=== PATIENT | female | born 1985 | race Caucasian/White ===

== ENCOUNTER 2018-06-09 12:44 | Emergency (ER) | payer MEDICAID, SELFPAY ==
[2018-06-09 12:52] VITALS: BP 130/77; PULSE 89; RESP 18; TEMP 36.8
--- NOTE | 2018-06-09 13:54 | DI.RAD_ITS ---
SYMPTOM/DIAGNOSIS: COUGH, PROD GREEN SPUTUM PA AND LATERAL CHEST: 06/09 The heart is normal in size. The lungs are clear. The mediastinal structures and pleura appear intact. CONCLUSION: Normal chest.
[2018-06-09] MEDS: Normal Saline 1,000 ML 1000 ML IV (14:21)
[2018-06-09 14:25] LABS: Abs Immature Grans 0.01 k/cumm (0.0-0.09); Absolute Basophil Count 0.01 k/cumm (0.0-0.2); Absolute Eosinophil Count 0.11 k/cumm (0.0-0.7); Absolute Lymphocyte Count 1.14 k/cumm (1.2-3.4); Absolute Monocyte Count 0.63 k/cumm (0.11-0.7); Absolute Neutrophil Count 4.12 k/cumm (1.2-6.7); Basophils % 0.2; Eosinophils % 1.8; HCT 47.1 % (36.0-46.0); Immature Grans % 0.2; Lymphocytes % 18.9; Mean Corpuscular Hemoglobin 29.7 pg (27.0-33.0); Mean Corpuscular Volume 87.4 fL (80-95); Mean Platelet Volume 8.7 fL (8.0-11.0); Monocytes % 10.5; Neutrophils % 68.4; Platelet Count 306 x1000/uL (130-400); RBC 5.39 m/cumm (4.00-5.20); RBC Distribution Width 12.5 % (11.7-14.6); White Blood Cell Count 6.02 k/cumm (4.4-10.8)
[2018-06-09] MEDS: Acetaminophen 500 MG TAB 1000 MG PO (14:28)
[2018-06-09] MEDS: Ketorolac 30 MG/ML VIAL IM (14:28)
[2018-06-09 14:30] LABS: Bilirubin Moderate (Negative); Blood Negative (Negative); Clarity Cloudy; Glucose Negative (Negative); Ketones >=160 mg/dL (Negative); Leukocyte Esterase Negative (Negative); Nitrite Negative (Negative); Specific Gravity >= 1.030 (1.005-1.025); Urobilinogen 0.2 EU/dL (Up TO 0.2)
[2018-06-09 14:37] LABS: RBC 0-2 (0-2); WBC 0-2 HPF (0-5)
[2018-06-09 14:37] LABS: ALT 16 U/L (12-78); AST 15 U/L (15-37); Albumin 3.8 g/dL (3.4-5.0); Alkaline Phosphatase 111 U/L (46-116); Anion Gap 13.6 mmol/L (3-11); BUN 14 mg/dL (7-18); Bilirubin, Total 0.5 mg/dL (0.2-1.0); CO2 23.4 mmol/L (21.0-32.0); CREATININE 0.86 mg/dL (0.55-1.02); Calcium 8.8 mg/dL (8.5-10.1); Chloride 97 mmol/L (98-107); Glucose 112 mg/dL (70-100); Lipase 231 U/L (73-393); Sodium 134 mmol/L (136-145); Total Protein 8.9 g/dL (6.4-8.2)
[2018-06-09 14:38] LABS: Bacteria Few HPF (Negative); C & S Indicated? No/Sq. Contamination; Casts Negative LPF (Negative); Crystals Negative HPF (Negative); Epithelial Cells Many HPF (Negative); Mucus Negative (Negative); Other Cells Rare Renal (Negative)
[2018-06-09 14:43] LABS: Potassium 2.8 mmol/L (3.5-5.1)
[2018-06-09] MEDS: POTASSIUM CHLORIDE 10 MEQ/100 ML BAG 100 MEQ IVPB (15:47)
[2018-06-09] MEDS: Potassium Chloride 20 MEQ TABCR 40 MEQ PO (15:47)
[2018-06-09 16:34] VITALS: BP 122/80; PULSE 90; RESP 18; TEMP 36.9; O2SAT 96
[2018-06-09 17:36] VITALS: BP 128/80; PULSE 89; RESP 16; TEMP 36.8; O2SAT 99
--- NOTE | 2018-06-09 21:22 | W.ED.GENAD ---
Discharge Plan Disposition Patient Disposition: HOME Condition: Good Discharge Details Chief Complaint: Dizzy/Sync Clinical Impression: Acute hypokalemia, Acute dehydration, URI (upper respiratory infection) Reason For Visit: PAOEX Primary Care Provider: Nila Singleton ED Provider: Rupesh Heranndes Home Meds and New Rx's Prescriptions: New potassium chloride 20 mEq tablet extended release 20 meq PO DAILY Qty: 7 RF: 0 No Action metronidazole 45 GM gel 45 gm Topical BID Qty: 1 RF: 5 omeprazole 40 MG capsule,delayed release(DR/EC) 40 mg PO DAILY Qty: 90 RF: 4 bupropion HCl 300 MG tablet extended release 24 hr 300 mg PO DAILY Qty: 90 RF: 3 norgestimate-ethinyl estradiol [Sprintec (28)] 1 EACH tablet 1 tab-cap PO DAILY Qty: 3 RF: 4 prazosin 1 MG capsule 1 mg PO HS Qty: 90 RF: 4 omega-3 fatty acids-fish oil 1 EACH capsule 1 ea PO BID Qty: 60 RF: 11 lorazepam 0.5 MG tablet 0.5 mg PO TID Qty: 90 RF: 1 cholecalciferol (vitamin D3) 4,000 unit capsule 4,000 unit PO DAILY Qty: 90 RF: 3 venlafaxine 75 mg capsule,extended release 24hr 75 mg PO DAILY Qty: 90 RF: 3 Discharge Instructions Instructions: Hypokalemia (ED), Upper Respiratory Infection (ED) Additional Instructions: Please take medication as directed. If you notice any worsening of your symptoms, or any new symptoms such as vomiting, diarrhea, fever, chills, shortness of breath, chest pain, numbness, weakness, or fainting , please return immediately to the emergency department for reevaluation. Please follow up with your primary care provider as soon as possible for reassessment and reevaluation. As always, it was a pleasure participating in your medical care today. Referrals: Nila Singleton MD [Primary Care Provider] - Medical Decision Making This is a pleasant 32-year-old female who presents with a myriad of various complaints, most of which stem from 5 days of an upper respiratory-like illness, with some associated occasional nausea, occasional vomiting, most often posttussive emesis, and occasional loose stools. The patient's symptoms have actually seemed to have improved in the last 24 hours but she still feels slightly poor. Fluids were started on the patient by EMS, and she states that the fluids that she received in route significantly improved her symptoms. The remainder of the patient's physical exam is very benign. Laboratory workup shows no evidence of leukocytosis, no significant anemia, no bandemia. Electrolytes demonstrate a low sodium of 2.8, which per records she has had in the past, however this 1 appears to be slightly acute at this time. Renal function is normal. Bilirubin, AST and ALT and alk phos are normal. Lipase is normal. Urinalysis shows signs of mild dehydration, but no evidence of infection or hematuria. After rehydration the patient was feeling much better. I feel that her symptoms are most likely secondary to mild dehydration secondary to her recent URI. She has been given IV and oral potassium here and new prescription for home potassium. We discussed red flags for which to return. I have extensively reviewed the treatment plan and discharge instructions with the patient. I have addressed all patient concerns at this time. The patient was made aware of what symptoms to monitor for that would warrant a return to the emergency department. Discussed the plan with the patient, they demonstrate verbal understanding and agreement with our assessment and plan at this time. HPI General Date/Time Provider Initiated Documentation: 06/09/18 13:29. [facility] Narrative: This is a 32-year-old female who presents today for evaluation of multiple nonspecific complaints. The patient states that over the last 5 days she has had upper respiratory infection-like symptoms, with cough, congestion, and runny nose. She has had occasional chills but denies any fever. Her cough has been productive with green sputum. She does admit to some mild fatigue, but to me she denies any dizziness, headache, syncope, numbness, tingling, chest pain, shortness of breath. She does admit to 2-3 episodes of vomiting 3 days ago, however this is resolved. She has does admit to some occasional loose stool but denies any recent antibiotic use, foreign travel, or other sick contacts. Patient did call EMS because of her symptoms, and an IV was started as well as IV fluids, patient states that as soon as she started getting the IV fluids she started feeling much better.Patient denies any other complaints at this time. She denies any recent surgical history, pertinent family history, IV or illicit drug use Related Data Home Medications Medication Instructions Recorded Confirmed metronidazole 45 gm TOPICAL BID #1 tube 11/16/16 omeprazole 40 mg PO DAILY #90 tab-cap 06/25/17 bupropion HCl 300 mg PO DAILY #90 tab-cap 07/25/17 norgestimate-ethinyl estradiol 1 tab-cap PO DAILY #3 pack 10/17/17 [Sprintec] prazosin 1 mg PO HS #90 cap 12/11/17 omega-3 fatty acids-fish oil 1 ea PO BID #60 cap 01/07/18 lorazepam 0.5 mg PO TID #90 tab-cap 04/24/18 cholecalciferol (vitamin D3) 4,000 4,000 unit PO DAILY #90 cap 05/20/18 unit capsule venlafaxine ER 75 mg 75 mg PO DAILY #90 cap 05/21/18 capsule,extended release 24 hr potassium chloride 20 meq PO DAILY #7 tab 06/09/18 Previous Rx's Medication Instructions Recorded omeprazole 40 mg PO DAILY #90 tab-cap 06/25/17 bupropion HCl 300 mg PO DAILY #90 tab-cap 07/25/17 norgestimate-ethinyl estradiol 1 tab-cap PO DAILY #3 pack 10/17/17 [Sprintec] prazosin 1 mg PO HS #90 cap 12/11/17 omega-3 fatty acids-fish oil 1 ea PO BID #60 cap 01/07/18 lorazepam 0.5 mg PO TID #90 tab-cap 04/24/18 cholecalciferol (vitamin D3) 4,000 4,000 unit PO DAILY #90 cap 05/20/18 unit capsule venlafaxine ER 75 mg 75 mg PO DAILY #90 cap 05/21/18 capsule,extended release 24 hr potassium chloride 20 meq PO DAILY #7 tab 06/09/18 Allergies Allergy/AdvReac Type Severity Reaction Status Date / Time Iodinated Contrast- Oral and Allergy Intermediate Rash,nausea Unverified 07/09/17 15:36 IV Dye General Stated Complaint: Dizzy/Sync JOSE MANUEL: 3 Review of Systems Review of Systems All systems reviewed & are unremarkable except as noted in HPI and below PFSH Family History Mother No problems noted. Father No problems noted. Grandfather Diabetes Dementia Sister No problems noted. Sister No problems noted. Sister No problems noted. Sister No problems noted. Brother No problems noted. Brother No problems noted. Grandfather Depression Myocardial infarction Cerebrovascular accident Grandmother No problems noted. Grandmother No problems noted. Daughter No problems noted. Paternal History Osteoporosis Medical History Contraception Depression GERD History of migraine Molar Renal mass, right Social History Smoking/Tobacco Use Status: Former Tobacco Use Surgical History Dilation and curettage Exam Narrative Exam Narrative: 1.Const: Well-nourished, Well-developed, appearing stated age 2.Eyes: PERRL, no conjunctival injection, and symmetrical lids. 3.ENT: Atraumatic external nose and ears. Dry MM. Neck: Symmetric, trachea midline, No thyromegaly. 4.CVS: +S1/S2, No murmurs or gallops. Peripheral pulses 2+ and equal in all extremities. Brisk capillary refill in all extremities. 5.RESP: Unlabored respiratory effort. Clear to auscultation bilaterally. No wheezes rales or rhonchi. Occasional upper respiratory rhonchi which are resolved with cough. 6.GI: Soft, Nontender/Nondistended, No hepatosplenomegaly. No guarding or rebound. No pain at McBurney's point. Negative Gipson sign. Bedside portable ultrasound was performed and demonstrated a gallbladder wall of 2.9 mm. No gallstones are present. Negative sonographic Gipson sign 7.MSK: Normocephalic/Atraumatic, Extremities w/o deformity or ttp No cyanosis or clubbing, Normal movement of all extremities 8.Skin: Warm, Dry. No rashes or lesions. 9.Neuro: nurse instructor II-XII grossly intact. Sensation grossly intact, no focal neurologic deficits. All 6 cardinal planes of vision or fully intact. No evidence of horizontal or vertical nystagmus. The patient demonstrated a normal vyfwkc-fduu-giqwmf, good dexterity. There was no evidence of dysdiadochokinesia. Patient was able to ambulate without difficulty. There was no wide-based gait. Romberg, and osfl-uc-xaal are both normal on testing. Sensation was intact bilaterally as well as muscle strength bilaterally for all extremities. Patient was able to verbalize butter cup with no slurring, or miss pronunciation. 10.Psych: (AAO) x3. Appropriate mood and affect Course Vital Signs Temperature 36.8 C 06/09/18 12:52 Pulse 89 06/09/18 12:52 Respiratory Rate 18 06/09/18 12:52 Blood Pressure 130/77 06/09/18 12:52 Temperature 36.8 C 06/09/18 17:36 Temperature Source Temporal Artery Scan 06/09/18 16:34 Pulse 89 06/09/18 17:36 Respiratory Rate 16 06/09/18 17:36 Respiratory Effort Non-Labored 06/09/18 12:54 Blood Pressure 128/80 06/09/18 17:36 Blood Pressure Position Sitting 06/09/18 12:52 Pulse Oximetry 99 06/09/18 17:36 Oxygen Delivery Method Room Air 06/09/18 16:34 Oxygen Flow Rate 0 06/09/18 16:34 Pain Level 4 06/09/18 12:52 Lab/Test Results Lab/Test Results: Laboratory Tests Range/Units 06/09/18 06/09/18 06/09/18 14:16 14:16 14:20 WBC (4.4-10.8) k/cumm 6.02 RBC (4.00-5.20) m/cumm 5.39 H Hgb (12.0-15.5) g/dL 16.0 H Hct (36.0-46.0) % 47.1 H MCV (80-95) fL 87.4 MCH (27.0-33.0) pg 29.7 MCHC (32.0-36.0) g/dL 34.0 RDW (11.7-14.6) % 12.5 Plt Count (130-400) x1000/uL 306 MPV (8.0-11.0) fL 8.7 Immature Gran % 0.2 Neutrophils % 68.4 Lymphocytes % 18.9 Monocytes % 10.5 Eosinophils % 1.8 Basophils % 0.2 Absolute Neutrophils (1.2-6.7) k/cumm 4.12 Absolute Lymphocytes (1.2-3.4) k/cumm 1.14 L Absolute Monocytes (0.11-0.7) k/cumm 0.63 Absolute Eosinophils (0.0-0.7) k/cumm 0.11 Absolute Basophils (0.0-0.2) k/cumm 0.01 Sodium (136-145) mmol/L 134 L Potassium (3.5-5.1) mmol/L 2.8 L* Chloride (98-107) mmol/L 97 L Carbon Dioxide (21.0-32.0) mmol/L 23.4 Anion Gap (3-11) mmol/L 13.6 H BUN (7-18) mg/dL 14 Creatinine (0.55-1.02) mg/dL 0.86 Estimated GFR/1.73 m2 (mL/min/1.73m2) >= 60.00 Glucose (70-100) mg/dL 112 H Calcium (8.5-10.1) mg/dL 8.8 Total Bilirubin (0.2-1.0) mg/dL 0.5 AST (15-37) U/L 15 ALT (12-78) U/L 16 Alkaline Phosphatase (46-116) U/L 111 Total Protein (6.4-8.2) g/dL 8.9 H Albumin (3.4-5.0) g/dL 3.8 Lipase (73-393) U/L 231 Urine Color (Yellow) Yellow Urine Clarity Cloudy Urine pH (5-8) 6.0 Ur Specific [place] (1.005-1.025) >= 1.030 H Urine Protein (Negative) mg/dL 30 H Urine Ketones (Negative) mg/dL >=160 Urine Blood (Negative) Negative Urine Nitrite (Negative) Negative Urine Bilirubin (Negative) Moderate H Urine Urobilinogen (Up TO 0.2) EU/dL 0.2 Ur Leukocyte Esterase (Negative) Negative Urine RBC (0-2) 0-2 Urine WBC (0-5) HPF 0-2 Ur Epithelial Cells (Negative) HPF Many Urine Crystals (Negative) HPF Negative Urine Bacteria (Negative) HPF Few Urine Casts (Negative) LPF Negative Urine Mucus (Negative) Negative Urine Other (Negative) Rare renal Ur Culture Indicated? No/sq. contamination Urine Glucose (Negative) mg/dL Negative POC- Test(urine) Negative
== END 2018-06-09 17:41 | disposition home or self-care (01) ==
PROVIDERS: Emergency Provider Student in an Organized Health Care Education/Training Program; PCP Internal Medicine
DX: E87.6 Hypokalemia (principal); E86.0 Dehydration; J06.9 Acute upper respiratory infection, unspecified
CPT/HCPCS: 80053; 81025; 83690; 96361; 96365; 96372; 99284; 71046; 81003; 81015; 85025; J1885; J3480

== ENCOUNTER 2018-07-19 13:26 | Outpatient (CLI) | payer MEDICAID, SELFPAY ==
[2018-07-19 14:31] LABS: Anion Gap 10.2 mmol/L (3-11); BUN 18 mg/dL (7-18); CO2 27.8 mmol/L (21.0-32.0); CREATININE 1.01 mg/dL (0.55-1.02); Calcium 8.8 mg/dL (8.5-10.1); Chloride 98 mmol/L (98-107); Glucose 79 mg/dL (70-100); Potassium 3.4 mmol/L (3.5-5.1); Sodium 136 mmol/L (136-145)
== END 2018-07-19 13:46 ==
PROVIDERS: PCP Internal Medicine; Visit Provider Internal Medicine
DX: E87.6 Hypokalemia (principal)
CPT/HCPCS: 36415; 80048

== ENCOUNTER 2018-09-20 13:33 | Outpatient (CLI) | payer MEDICAID, SELFPAY ==
[2018-09-20 13:54] LABS: HCT 40.8 % (36.0-46.0); HGB 13.7 g/dL (12.0-15.5); Mean Corp. HGB Concentration 33.6 g/dL (32.0-36.0); Mean Corpuscular Hemoglobin 30.6 pg (27.0-33.0); Mean Corpuscular Volume 91.3 fL (80-95); Mean Platelet Volume 8.9 fL (8.0-11.0); Platelet Count 253 x1000/uL (130-400); RBC 4.47 m/cumm (4.00-5.20); RBC Distribution Width 12.4 % (11.7-14.6); White Blood Cell Count 4.34 k/cumm (4.4-10.8)
[2018-09-20 14:55] LABS: ALT 19 U/L (12-78); AST 13 U/L (15-37); Albumin 3.4 g/dL (3.4-5.0); Alkaline Phosphatase 58 U/L (46-116); Anion Gap 5.5 mmol/L (3-11); BUN 14 mg/dL (7-18); Bilirubin, Total 0.2 mg/dL (0.2-1.0); CO2 29.5 mmol/L (21.0-32.0); CREATININE 0.77 mg/dL (0.55-1.02); Calcium 8.7 mg/dL (8.5-10.1); Chloride 102 mmol/L (98-107); Glucose 115 mg/dL (70-100); Potassium 3.9 mmol/L (3.5-5.1); Sodium 137 mmol/L (136-145)
[2018-09-20 15:03] LABS: ESR 6 MM/HR (0-20)
== END 2018-09-20 13:53 ==
PROVIDERS: PCP Internal Medicine; Visit Provider Internal Medicine
DX: R63.4 Abnormal weight loss (principal)
CPT/HCPCS: 36415; 80053; 85027; 85652

== ENCOUNTER 2018-10-04 00:22 | Outpatient (CLI) | payer MEDICAID, SELFPAY ==
--- NOTE | 2018-10-04 08:19 | DI.US_ITS ---
SYMPTOMS/DIAGNOSIS: LOWER ABDOMINAL PAIN, ABNORMAL 60-POUND WEIGHT LOSS X 1 YEAR, GENERAL MALAISE, H/O RIGHT RENAL MASS, INCONCLUSIVE BIOP[place] [facility] [place] ABDOMINAL ULTRASOUND: Routine examination. Comparison CT scan is 02/07/17. Comparison MRI is 02/27/17. The aorta and IVC are unremarkable. The liver is normal in size and appearance. No hepatic mass is seen. The gallbladder and common duct are within normal limits. The pancreas and spleen are unremarkable. The left kidney has a normal appearance. The right kidney is normal in size. There is a 1.7 x 1.4 x 1.8 cm hyperechoic mass seen on the right kidney medially. This corresponds to the mass seen on the CT scan and the MRI from 2017. It is unchanged in size. No free fluid is seen in the abdomen. IMPRESSION: A 1.8 cm solid hyperechoic homogeneous mass seen in the right kidney. It appears stable in size compared to the prior CT scan and MRI from 2017. Otherwise negative abdominal ultrasound.
== END 2018-10-04 00:42 ==
PROVIDERS: PCP Internal Medicine; Visit Provider Internal Medicine
DX: R10.31 Right lower quadrant pain (principal); R63.4 Abnormal weight loss; R53.81 Other malaise; N28.89 Other specified disorders of kidney and ureter
CPT/HCPCS: 76700

== ENCOUNTER 2018-10-14 14:12 | Outpatient (CLI) | payer MEDICAID, SELFPAY ==
[2018-10-14 15:51] LABS: TSH (W/Ref FT4) 1.15 uIU/mL (0.358-3.74)
[2018-10-14 15:53] LABS: Hemoglobin A1C 5.5 % (4.5-6.2)
[2018-10-16 10:20] LABS: IgA 274 mg/dL (85-499); Interpretation SEE COMMENTS; Tissue Transglutaminase IgA <1.2 U/mL (<4.0)
== END 2018-10-14 14:32 ==
PROVIDERS: PCP Internal Medicine; Visit Provider Internal Medicine
DX: R63.4 Abnormal weight loss (principal); R73.9 Hyperglycemia, unspecified
CPT/HCPCS: 36415; 82784; 83516; 83036; 84443

== ENCOUNTER 2018-10-22 09:12 | Day surgery (SDC) | payer MEDICAID, SELFPAY ==
--- NOTE | 2018-10-22 06:51 | W.PM.ENDDOP ---
Date of service: 10/22/18 Time of Service: 10:06 Endoscopy Report DATE OF PROCEDURE: 10/22/18 PRE-OP DIAGNOSIS: Weight loss and abdominal pain POST-OP DIAGNOSIS: other (mild inflammation in the stomach and esophagus) PROCEDURE: EGD with biopsies SURGEON: Kia Carpenter ANESTHESIA: MAC (Mika Dove, ELECT[employer]CH[employer]ICAL [employer]QUIPMENT ASSEMBLER/ ASA 2) ESTIMATED BLOOD LOSS: 3 PATHOLOGY: other (duodenal bx, gastric bx, ge junction bx) COMPLICATIONS: None DISPOSITION: same day INDICATIONS: Mrs. Kemp is a pleasant 33 year old female with weight loss and abdominal pain. Risks, benefits and complications have been reviewed. Complications include but are not limited to bleeding, pain, perforation, sore throat, aspiration, and adverse reaction to the medications. Questions were entertained and answered to their satisfaction and they wished to proceed. No guarantees were given or implied. FINDINGS: mild inflammation of the stomach and esophagus. Findings consistent with reflux. Bx done to rule out celiac, valadez's and H. pylori PROCEDURE DESCRIPTION: After informed consent was obtained the patient was take to the procedure room and placed in a supine position. Monitors were applied and a time out was done. The patients name, date of , procedure type, allergies to medications and metal in their body was reviewed. A bite block was placed and the patient was sedated. Once sedated and comfortable the gastroscope was advanced through the oropharynx which was grossly normal into the esophagus. The proximal and mid-esophagus were normal. In the distal esophagus there was mild inflammation noted. The scope was advanced into the stomach and through the pylorus into the 3rd portion of the duodenum. The duodenum was noted to be normal. Biopsies were done of the duodenum to rule out celiac. The scope was retracted back into the stomach and biopsies were done to rule out H. pylori. There were no ulcers. A few small polyps were noted in the stomach and bx were done. The scope was retroflexed. The cardia and fundus were noted to be normal. There was no hiatal hernia noted. The scope was retracted back into the esophagus and biopsies were done of the GE junction to rule out Valadez's. The Z line was irregular. The GE junction was at 35 cm. The scope was removed and the patient was woken up and taken back to [facility] in stable condition. Follow up: with PCP in 3-4 weeks. I will add Ranitidine at night to see if this helps. I will call her with results of the bx.
--- NOTE | 2018-10-22 06:52 | W.PM.DSUDISC ---
Discharge Plan Disposition Patient Disposition: HOME Condition: Good Discharge Details Reason For Visit: ABNORMAL WT LOSS Attending Provider: Kia Carpenter Primary Care Provider: Nila Singleton Home Meds and New Rx's Prescriptions: New ranitidine HCl 300 mg capsule 300 mg PO QHS Qty: 30 RF: 1 Continued lorazepam 0.5 mg tablet 0.5 mg PO TID PRN (Reason: anxiety) RF: 0 citalopram 10 mg tablet 10 mg PO DAILY Qty: 30 RF: 2 venlafaxine 75 mg capsule,extended release 24hr 75 mg PO DAILY RF: 0 norgestimate-ethinyl estradiol [Sprintec (28)] 1 EACH tablet 1 tab-cap PO DAILY Qty: 3 RF: 4 prazosin 1 MG capsule 1 mg PO HS Qty: 90 RF: 4 cholecalciferol (vitamin D3) 4,000 unit capsule 4,000 unit PO DAILY Qty: 90 RF: 3 potassium chloride 20 mEq tablet extended release 10 meq PO DAILY Qty: 30 RF: 3 bupropion HCl 300 mg tablet extended release 24 hr 300 mg PO DAILY Qty: 90 RF: 3 omega-3 fatty acids-fish oil 300-1,000 mg capsule 2 cap PO BID Qty: 90 RF: 11 omeprazole 40 mg capsule,delayed release(DR/EC) 40 mg PO DAILY Qty: 90 RF: 4 Discharge Instructions Instructions: Gastritis (DC), Diet for Stomach Ulcers and Gastritis (GEN), Gastroesophageal Reflux Disease (DC), Upper Endoscopy (DC) Additional Instructions: Findings: mild inflammation of the stomach and esophagus Follow up: with your PCP in 3-4 weeks Please call if you develop: fevers >101.5 Nausea or Vomiting Abdominal pain that is not transient DAY SURGERY UNIT POST COLONOSCOPY INSTRUCTIONS 1. Because there will be medication in your system for the next 24 hours, you may feel a little sleepy. Your coordination will be affected. Therefore: a. Do not drive or operate dangerous equipment for 24 hours. b. Do not drink alcohol beverages for 24 hours (not even beer). c. Plan to go home and rest for the day. 2. Generally there are no restrictions on your activity after a day or so has gone by, but you may feel a bit fatigued for a few days. 3 After you arrive home you may have a light meal and return to a normal diet as you can tolerate it without feeling sick to your stomach. 4. After surgery, you may feel pain or discomfort. This should be only transient, but if it persists please contact your doctor. 5. If there are any questions regarding the findings of your procedure, please feel free to contact your doctor. 6. If you are unable to contact your doctor with a problem, contact the hospital at [phone]. 7. Continue all your regular medications unless directed otherwise. I understand the above instructions and have no questions. Signature of Patient or Responsible Adult Escort Date/Time Name of Responsible Adult Escort Signature of Nurse Date/Time Stand Alone Forms: DSU Post EGD Instructions, Keely Gallardo (DSU) Referrals: Nila Singleton MD [Primary Care Provider] - (3-4 weeks. follow up for weight loss) Activity:: Activity as Tolerated Diet:: low acid Discharge Orders Discharge Orders: Discharge Order (Routine); Ordered 10/22/18 Ordered By: Kia Carpenter DS: Diagnosis Discharge Diagnosis (1) H/O esophagogastroduodenoscopy: Status: Chronic (2) Gastritis: Status: Acute (3) Benign gastric polyp: Status: Acute (4) GERD (gastroesophageal reflux disease): Status: Chronic
[2018-10-22 09:22] VITALS: BP 119/75; PULSE 72; RESP 16; TEMP 35.3; O2SAT 99
[2018-10-22] MEDS: Lactated Ringers 1,000 ML 80 ML IV (09:51)
--- NOTE | 2018-10-22 10:08 | BOWEL_PTH ---
PATIENT: Shey Kemp LOC: [facility] U#:[id number] AGE/SX: 33/F ROOM: RE10/22/[address]: Kia Carpenter MD : [id number] BED: DIS: 10/22/2018 SPEC #: [id number] RECD: 10/22/18 13:04 STATUS: [facility] #: [id number] JENNIFER: 10/22/18 10:[address]: Kai Carpenter DEPT: Surgical Specimen RECD BY: Coleen Bañuelos ENTERED: 10/22/18 13:07 SP TYPE: Bowel OTHR DR: Nila Lubin MD Tissues: 1 - BIOPSY BOWEL 2 - STOMACH BIOPSY 3 - STOMACH BIOPSY 4 - ESOPHAGUS BIOPSY Procedures: GROSS AND MICRO LEVEL 4 Comments: [id number]
[2018-10-22 11:07] VITALS: BP 97/35; PULSE 71; RESP 16; TEMP 36.1; O2SAT 97
[2018-10-22] MEDS: Ondansetron O.D.T. 4 MG TABEF PO (11:31)
== END 2018-10-22 12:00 | disposition home or self-care (01) ==
LOC: SUR 09:12
PROVIDERS: PCP Internal Medicine; Visit Provider Surgery
PROC: 0DJ68ZZ Inspection of Stomach, Via Natural or Artificial Opening Endoscopic (ICD-10-PCS; CPT 43235; principal; 2018-10-22 09:15)
DX: R10.84 Generalized abdominal pain (principal); R63.4 Abnormal weight loss; K31.89 Other diseases of stomach and duodenum; K31.7 Polyp of stomach and duodenum; K21.0 Gastro-esophageal reflux disease with esophagitis
CPT/HCPCS: 43239; 81025; 88305

== ENCOUNTER 2018-11-12 01:12 | Outpatient (CLI) | payer MEDICAID, SELFPAY ==
--- NOTE | 2018-11-12 07:30 | MERGE_ITS ---
*[facility]* *[facility]* [address] [place] [address] Date of study: 11/12/2018 Transthoracic Echocardiography M-mode, complete 2D, complete spectral Doppler, and color Doppler *STUDY CONCLUSIONS* Summary: 1. Left ventricle: The cavity size was normal. Wall thickness was normal. Systolic function was normal. The estimated ejection fraction was 55-60%. Wall motion was normal; there were no regional wall motion abnormalities. 2. Right ventricle: The cavity size was normal. Wall thickness was normal. Systolic function was normal. *PATIENT PRESENTATION* Height: 165.1cm ((65in) ) S/D Pressure: 103 / 61 Weight: 61.2kg ((134.7lb) ) BSA: 1.68m^2 Test start time: 07:45 AM. Test stop time: 08:30 AM. PERFORMING Unknown PERFORMING [facility] ORDERING Nila Singleton REFERRING Nila Singleton CARD MOUNTER Sigrid Padron, RT (R)(CT), [facility] *PROCEDURE DATA* Procedure information: The patient was identified by two identifiers. This study was interpreted by [facility]. Pertinent images and digital data are archived for permanent storage and are available for subsequent review. No prior study was available for comparison. Study status: Routine. Transthoracic echocardiography. M-mode, complete 2D, complete spectral Doppler, and color Doppler. A Transthoracic Echocardiogram was performed. Scanning was performed from the parasternal, apical, subcostal, and suprasternal notch acoustic windows. Images were obtained using an [id number] cardiac ultrasound machine. Image quality was adequate. Study completion: The patient tolerated the procedure well. History: PMH: Palpitations/murmur r00.2. *CARDIAC ANATOMY* Left ventricle: The cavity size was normal. Wall thickness was normal. Systolic function was normal. The estimated ejection fraction was 55-60%. Wall motion was normal; there were no regional wall motion abnormalities. Diastolic parameters were normal. Aortic valve: Trileaflet; normal thickness leaflets. Mobility was not restricted. Doppler: Transvalvular velocity was within the normal range. There was no stenosis. There was no significant regurgitation. VTI ratio of LVOT to aortic valve: 0.83. Valve area (VTI): 2cm^2. Indexed valve area (VTI): 1.2cm^2/m^2. Peak velocity ratio of LVOT to aortic valve: 0.76. Valve area (Vmax): 1.9cm^2. Indexed valve area (Vmax): 1.1cm^2/m^2. Mean velocity ratio of LVOT to aortic valve: 0.79. Valve area (Vmean): 1.9cm^2. Indexed valve area (Vmean): 1.2cm^2/m^2. Mean gradient (S): 3.7mm Hg. Peak gradient (S): 6.4mm Hg. Aorta: Aortic root: The aortic root was normal in size. Ascending aorta: The ascending aorta was normal in size. Mitral valve: Structurally normal valve. Mobility was not restricted. Doppler: Transvalvular velocity was within the normal range. There was no evidence for stenosis. There was no significant regurgitation. Valve area by pressure half-time: 4.4cm^2. Indexed valve area by pressure half-time: 2.6cm^2/m^2. Peak gradient (D): 4.3mm Hg. Left atrium: The atrium was normal in size. Right ventricle: The cavity size was normal. Wall thickness was normal. Systolic function was normal. Pulmonic valve: Structurally normal valve. Doppler: Transvalvular velocity was within the normal range. There was no evidence for stenosis. There was no significant regurgitation. Tricuspid valve: Structurally normal valve. Doppler: Transvalvular velocity was within the normal range. There was no evidence for stenosis. There was no significant regurgitation. Pulmonary artery: Pulmonary systolic pressure was within the normal range. Right atrium: The atrium was normal in size. Pericardium: There was no pericardial effusion. Systemic veins: Inferior vena cava: Well visualized. The vessel was mildly dilated. The respirophasic diameter changes were in the normal range (greater than or equal to 50%). Baseline ECG: Normal sinus rhythm. Measurements Left ventricle Value Reference LV ID, ED, PLAX 4.3 cm 3.5 - 6.0 LV ID, ES, PLAX 3.0 cm 2.1 - 4.0 LV PW thickness, ED, PLAX 0.7 cm LV end-diastolic volume, 1-p A2C 79 ml LV ejection fraction, 1-p A2C 63 % LV end-diastolic volume, 1-p A4C 77 ml LV ejection fraction, 1-p A4C 61 % LV e', lateral 0.239 m/sec LV E/e', lateral 4 LV e', medial 0.144 m/sec LV E/e', medial 7 LV e', average 0.191 m/sec LV E/e', average 5 Ventricular septum Value Reference IVS thickness, ED, PLAX 0.8 cm LVOT Value Reference LVOT ID, A-P 1.8 cm LVOT area 2.5 cm^2 LVOT peak velocity, S 0.97 m/sec LVOT mean velocity, S 0.72 m/sec LVOT VTI, S 19.9 cm LVOT peak gradient, S 3.7 mm Hg LVOT mean gradient, S 2.3 mm Hg Stroke volume (SV), LVOT DP 49 ml Stroke index (SV/bsa), LVOT DP 29 ml/m^2 Aortic valve Value Reference Aortic valve peak velocity, S 1.3 m/sec Aortic valve mean velocity, S 0.91 m/sec Aortic valve VTI, S 24.0 cm Aortic mean gradient, S 3.7 mm Hg Aortic peak gradient, S 6.4 mm Hg VTI ratio, LVOT/AV 0.83 Aortic valve area, VTI 2 cm^2 Velocity ratio, peak, LVOT/AV 0.76 Aortic valve area, peak velocity 1.9 cm^2 Velocity ratio, mean, LVOT/AV 0.79 Aortic valve area, mean velocity 1.9 cm^2 Aortic valve area/bsa, mean velocity 1.2 cm^2/m^2 Aorta Value Reference Aortic root ID, ED 2.4 cm Ascending aorta ID, A-P, S 2.2 cm Left atrium Value Reference LA ID, A-P, ES 3.1 cm LA ID/bsa, A-P 1.9 cm/m^2 <=2.2 LA area, ES, A4C 15.8 cm^2 8.8 - 23.4 LA area, ES, A2C 13 cm^2 LA volume/bsa, ES, 1-p A4C 21 ml/m^2 LA volume, ES, 2-p 37 ml LA volume/bsa, ES, 2-p 22 ml/m^2 LA/aortic root ratio 1.29 Mitral valve Value Reference Mitral E-wave peak velocity 1.04 m/sec Mitral deceleration time 173 ms 150 - 230 Mitral pressure half-time 50 ms Mitral peak gradient, D 4.3 mm Hg Mitral valve area, PHT, DP 4.4 cm^2 Pulmonary veins Value Reference Pulmonary vein peak velocity, S 0.66 m/sec Pulmonary vein peak velocity, D 0.59 m/sec Pulmonary vein velocity ratio, peak, 1.11 S/D Tricuspid valve Value Reference Tricuspid regurg peak velocity 2.3 m/sec Tricuspid peak RV-RA gradient 21.1 mm Hg Right atrium Value Reference RA area, ES, A4C 11.7 cm^2 8.3 - 19.5 Legend: (L) and (H) brandi values outside specified reference range. I have personally reviewed the images and have reviewed and edited the reported findings. Electronically signed by Santos Cano 11/12/2018 09:24
== END 2018-11-12 01:32 ==
PROVIDERS: PCP Internal Medicine; Visit Provider Internal Medicine
DX: R00.2 Palpitations (principal); R01.1 Cardiac murmur, unspecified
CPT/HCPCS: 93306

== ENCOUNTER 2020-07-05 11:51 | Outpatient (CLI) | payer MEDICAID, SELFPAY ==
[2020-07-07 16:21] LABS: Patient Race White; SARS-CoV-2 RNA Undetected (Undetected); SARS-CoV-2 Specimen Source Nasal
== END 2020-07-05 12:11 ==
PROVIDERS: PCP Nurse Practitioner; Visit Provider Nurse Practitioner
DX: R05 Cough (principal)
CPT/HCPCS: U0003

== ENCOUNTER 2021-06-09 06:11 | Emergency (ER) | payer MEDICAID, SELFPAY ==
[2021-06-09 06:15] VITALS: BP 140/83; PULSE 62; RESP 18; TEMP 36.5; O2SAT 98
--- NOTE | 2021-06-09 06:27 | ED.GENADUL_ITS ---
Discharge Plan Disposition Patient Disposition: HOME Condition: Good Discharge Details Clinical Impression: Back sprain Primary Care Provider: Katelynn Miller ED Provider: Rupesh Hernandes Home Meds and New Rx's Prescriptions: New cyclobenzaprine 10 mg tablet 10 mg PO TID Qty: 14 RF: 0 lidocaine [Lidoderm] 1 PATCH patch 1 patch Topical Q24H Qty: 4 RF: 0 prednisone 50 MG tablet 50 mg PO DAILY Qty: 5 RF: 0 No Action venlafaxine 75 mg capsule,extended release 24hr 75 mg PO DAILY Qty: 90 RF: 4 bupropion HCl 300 mg tablet extended release 24 hr 300 mg PO DAILY Qty: 90 RF: 3 Discharge Instructions Instructions: Acute Low Back Pain (ED) Additional Instructions: At this time your signs and symptoms are clinically consistent with a back sprain. This can cause significant pain and take a fair bit of time to heal. I expect 1 to 2 months for potential resolution. In the meantime do not lift anything greater than 5 pounds for the next 2 weeks. Avoid any significant vigorous physical activity. Perform easy gentle regular activities at home without any significant bending or lifting. Please take the steroids as directed. You have been given a prescription for Lidoderm patch. If your insurance does not cover this you can get [id number] Lidoderm patches at 4% which are almost just as effective. Please take the Flexeril as directed but do not take it when driving or operating any vehicles or heavy machinery, swimming, taking long baths, or operating firearms. Please use a heating pad as often as possible on your back. Perform daily gentle stretches on your back. Please continue to take the Tylenol and Motrin. You can take 1000 mg of Tylenol every 6 hours and 600 mg of ibuprofen every 6 hours. If you notice any worsening of your symptoms, or any new symptoms such as vomiting, diarrhea, fever, chills, shortness of breath, chest pain, numbness or tingling in your groin or legs, weakness in your legs, loss of control for your bowels or bladder, or fainting , please return immediately to the emergency department for reevaluation. Please follow up with your primary care provider as soon as possible for reassessment and reevaluation. As always, it was a pleasure participating in your medical care today. Referrals: Katelynn Miller, INVENTORY AUDITOR [Primary Care Provider] - Medical Decision Making 35-year-old female who presents today for evaluation of back pain. Patient states that yesterday she was catching her daughter when she was getting out of the school bus and felt notable pain in her lower back. Since then she has had pain in the low back, particularly on the right-hand side, radiating down to the right buttock. Patient denies any saddle anesthesia, numbness or tingling in the groin, change in sensation when wiping. Patient denies any change in sensation during sexual intercourse, bowel or bladder incontinence, leakage, or retention. Patient denies any weakness in the lower extremities, atypical falls or imbalance. No other complaints at this time. No other modifying factors. Physical exam demonstrates notable right lower paraspinal spasm, and tenderness, no midline tenderness. No concerning red flags on history or exam otherwise. Symptoms consistent with sprain to the back, and no clinical evidence of cauda equina syndrome, or other concerning etiology at this time. Discussed red flags for which to return. We will give Flexeril, steroids, Lidoderm patch, and recommend Tylenol and Motrin at home. I have extensively reviewed the treatment plan and discharge instructions with the patient. I have addressed all patient concerns at this time. The patient was made aware of what symptoms to monitor for that would warrant a return to the emergency department. Discussed the plan with the patient, they demonstrate verbal understanding and agreement with our assessment and plan at this time. The documentation in this chart was dictated using [employer] dictation software. Please excuse any dictation errors. HPI General Date/Time Provider Initiated Documentation: 06/09/21 06:15 . HPI Narrative: 35-year-old female who presents today for evaluation of back pain. Patient states that yesterday she was catching her daughter when she was getting out of the school bus and felt notable pain in her lower back. Since then she has had pain in the low back, particularly on the right-hand side, radiating down to the right buttock. Patient denies any saddle anesthesia, numbness or tingling in the groin, change in sensation when wiping. Patient denies any change in sensation during sexual intercourse, bowel or bladder incontinence, l eakage, or retention. Patient denies any weakness in the lower extremities, atypical falls or imbalance. No other complaints at this time. No other modifying factors. Related Data Home Medications Medication Instructions Recorded Confirmed venlafaxine 75 mg capsule,extended 75 mg PO DAILY #90 cap 05/21/20 06/09/21 release 24 hr bupropion HCl 300 mg 24 hr tablet, 300 mg PO DAILY #90 tab-cap 07/27/20 06/09/21 extended release cyclobenzaprine 10 mg PO TID #14 tab 06/09/21 lidocaine [Lidoderm] 1 patch TOPICAL Q24H #4 ea 06/09/21 prednisone 50 mg PO DAILY #5 tab 06/09/21 Previous Rx's Medication Instructions Recorded venlafaxine 75 mg capsule,extended 75 mg PO DAILY #90 cap 05/21/20 release 24 hr bupropion HCl 300 mg 24 hr tablet, 300 mg PO DAILY #90 tab-cap 07/27/20 extended release cyclobenzaprine 10 mg PO TID #14 tab 06/09/21 lidocaine [Lidoderm] 1 patch TOPICAL Q24H #4 ea 06/09/21 prednisone 50 mg PO DAILY #5 tab 06/09/21 Allergies Allergy/AdvReac Type Severity Reaction Status Date / Time Iodinated Contrast Media Allergy Intermediate Rash,nausea Unverified 10/08/20 14:10 [Iodinated Contrast- Oral and IV Dye] Artifical colors, sweeteners Allergy Intermediate Migraines, Uncoded 10/08/20 14:11 or flavors Vomiting General Stated Complaint: Orthopedic JOSE MANUEL: 4 Review of Systems All systems reviewed & are unremarkable except as noted in HPI and below PFSH Medical History Abdominal pain Benign gastric polyp Contraception after in 2014 OCPs then Depo. 10/2016 not sexually active. Depression increased sx since . Has counselor and meds prescribed by PCP. 11/03/16 EPDS score = 15. Gastritis GERD (gastroesophageal reflux disease) History of migraine Molar Renal mass, right 1.7cm renal mass noted as incidental finding on CT for eval of RLQ pain. 03/26/17 biopsy of mass at [facility] interventional radiology. Path: fibrovascular tissue. Plan repeat CT scan 10/2017. Right renal mass (03/23/17) 03/26/17 R renal bx at [facility] [place] interventional radiology. Path revealed fragments of fibrovascular tissue. Will repeat renal CT 10/2018- no changes, no further action Term delivered Surgical History Dilation and curettage 2011,2012, 2013 for SABs. H/O esophagogastroduodenoscopy (~10/22/18) Family History Mother No problems noted. Grandfather Diabetes Dementia Grandfather Depression Myocardial infarction Stroke Paternal History Osteoporosis Social History Smoking/Tobacco Use Status: Former Tobacco Use tobacco type: cigarettes and smokeless tobacco Second Hand Exposure: Yes Smoking risk assessment performed?: Yes Alcohol Intake: current Alcohol Intake frequency: holidays/special occasions only Alcohol type: hard liquor Drug use: Daily Substance use type: marijuana Caregiver/Support person: No Household members: significant other and children Housing: house Communication Needs: Corrective Lenses Do you need help understanding health information?: Often Pets and animals: No Sexually active: Yes Do you think of yourself as: straight/heterosexual Current gender identity: female What is your relationship status?: living with partner How often do you talk on the phone with friends or family?: three or more times per week How often do you get together with friends or relatives?: three or more times per week Do you belong to any clubs or organized social groups?: no Panel score (0-1 are the most socially isolated patients): 2 What type of physical activity do you participate in: regular exercise Duration: 15-30 minutes/day Frequency: 3-4 times per week Seatbelt use: always Helmet use: Yes Helmet use: always Drive intox or ride w/intox public transit trolley driver: No Do you feel safe at home: Yes Do you feel safe in your relationship?: Yes Exam Narrative Exam Narrative: 1.Const: Well-nourished, Well-developed, appearing stated age 2.Eyes: PERRL, no conjunctival injection, and symmetrical lids. 3.ENT: Atraumatic external nose and ears. Moist MM. Neck: Symmetric, trachea midline, No thyromegaly. 4.CVS: +S1/S2, No murmurs or gallops. Peripheral pulses 2+ and equal in all extremities. Brisk capillary refill in all extremities. 5.RESP: Unlabored respiratory effort. Clear to auscultation bilaterally. No wheezes rales or rhonchi 6.GI: Soft, Nontender/Nondistended, No hepatosplenomegaly. No guarding or rebound. 7.MSK: Normocephalic/Atraumatic, Extremities w/o deformity or ttp No cyanosis or clubbing, Normal movement of all extremities No midline tenderness to palpation over the CTLS spine. Mild right paraspinal tenderness over the lower lumbar vertebra, notable spasm palpable. Normal ROM in flexion, extension, side bend, and rotation. Patient has +5 out of 5 strength in the lower extremities in dorsiflexion and plantarflexion, knee flexion and extension, hip flexion and extension. Normal strength for dorsiflexion and plantar flexion of the great toe bilaterally. There is +2 over 2 dorsalis pedis pulses bilaterally. There is normal sensation to the skin with light touch at the foot, knee, and hip. Normal saddle sensation. Good sensation over the deep sural nerve area bilaterally. Rectal exam demonstrates good rectal tone, good perirectal sensation. Reflexes are +2 over 4 in the patellar reflex bilaterally. +5 out of 5 strength in the medial, ulnar, radial nerve distribution bilaterally in the hands as well as intact light touch sensation to these dermatomes on the hands 8.Skin: Warm, Dry. No rashes or lesions. 9.Neuro: casting director II-XII grossly intact. Sensation grossly intact, no focal neurologic deficits. 10.Psych: (AAO) x3. Appropriate mood and affect Course Vital Signs Vital signs: Vital Signs Temperature 36.5 C 06/09/21 06:15 Pulse 62 06/09/21 06:15 Respiratory Rate 18 06/09/21 06:15 Blood Pressure 140/83 06/09/21 06:15 Pulse Oximetry 98 06/09/21 06:15 Temperature 36.5 C 06/09/21 06:15 Temperature Source Temporal Artery Scan 06/09/21 06:15 Pulse 62 06/09/21 06:15 Respiratory Rate 18 06/09/21 06:15 Respiratory Effort 06/09/21 06:19 Blood Pressure 140/83 06/09/21 06:15 Blood Pressure Position Sitting 06/09/21 06:15 Pulse Oximetry 98 06/09/21 06:15 Pain Level 10 06/09/21 06:15
[2021-06-09] MEDS: Acetaminophen 500 MG TAB 1000 MG PO (06:36)
[2021-06-09] MEDS: predniSONE 20 MG TAB 60 MG PO (06:37)
[2021-06-09] MEDS: Ketorolac 30 MG/ML VIAL IM (06:37)
[2021-06-09] MEDS: Lidocaine 5% Patch 1 PATCH TP (06:37)
== END 2021-06-09 06:43 | disposition home or self-care (01) ==
LOC: ER 06:44
PROVIDERS: Emergency Provider Student in an Organized Health Care Education/Training Program; PCP Nurse Practitioner
DX: S33.5XXA Sprain of ligaments of lumbar spine, initial encounter (principal); X50.0XXA Overexertion from strenuous movement or load, initial encounter
CPT/HCPCS: 96372; 99284; 99283; J1885; J7512

== ENCOUNTER 2021-07-06 04:51 | Outpatient (CLI) | payer MEDICAID, SELFPAY ==
[2021-07-06 15:27] LABS: Hemoglobin A1C 5.4 % (<5.7)
[2021-07-06 16:01] LABS: Calculated LDL 80 mg/dL (<100); Cholesterol 151 mg/dL (<200); HDL Cholesterol 64 mg/dL (40-60); Triglyceride 37 mg/dL (<150)
== END 2021-07-06 04:52 | disposition home or self-care (01) ==
LOC: LBO 04:51
PROVIDERS: PCP Nurse Practitioner; Visit Provider Nurse Practitioner
DX: Z13.220 Encounter for screening for lipoid disorders (principal); Z13.1 Encounter for screening for diabetes mellitus
CPT/HCPCS: 36415; 80061; 83036

== ENCOUNTER 2022-05-09 05:06 | Emergency (ER) | payer MEDICAID, SELFPAY ==
--- NOTE | 2022-05-09 05:16 | NUR.NOTE ---
here for a covid test. will go to her pharmacy when it opens.Nursing Note:
== END 2022-05-09 05:16 ==
LOC: ER 05:23
PROVIDERS: PCP Nurse Practitioner
DX: Z53.21 Procedure and treatment not carried out due to patient leaving prior to being seen by health care provider (principal)

== ENCOUNTER 2023-04-17 11:54 | Emergency (ER) | payer MEDICAID, SELFPAY ==
[2023-04-17 12:06] VITALS: BP 130/87; PULSE 80; RESP 16; TEMP 37.2; O2SAT 99
--- NOTE | 2023-04-17 12:30 | DI.CT_ITS ---
Exam(s) CT CHEST/ABD/PEL WO CT THORACIC LUMBAR SPINE REC EXAM: CT CHEST/ABD/PEL WO and CT thoracic and lumbar spine recons CLINICAL HISTORY: Back Pain, CVA tenderness TECHNIQUE: Imaging Protocol: Axial computed tomography images with coronal and sagittal reformatted images were created and reviewed COMPARISON: CT ABD PELVIS WITH CONTRAST from 02/07/[address] THORACIC LUMBAR SPINE REC from 04/17/2023 FINDINGS: CHEST: Tracheobronchial tree: Patent where visualized. Pulmonary parenchyma: No consolidation or dominant measurable mass. No architectural distortion. Mediastinum and Courtney: No dominant adenopathy or fluid collection. The esophagus is unremarkable. Thyroid gland: Unremarkable. Pleura: No effusion or pneumothorax. Heart: The heart is not dilated. No coronary artery calcifications are seen. No pericardial effusion. Aorta: Thoracic aorta non-dilated. Lymph nodes: Within normal limits. Bones:Within normal limits for the patient's age. Soft tissues: Unremarkable. Thoracic spine CT recons: There are mild degenerative changes seen in the thoracic spine. No acute f ractures or subluxations are present. ABDOMEN: Liver: Normal density. No measurable mass. Gallbladder and Biliary Tract: No radiodense calculus or dilation. Pancreas: Normal density, no abnormal calcifications or inflammatory process. Spleen: Normal. Adrenals: There is again seen a peripherally calcified left adrenal nodule appears stable. The right adrenal gland is unremarkable. Kidneys: Normal size, contour and axis. No radiodense stones or obstructive uropathy. The 1.3 cm exop hytic lesion in the midpole of the medial right kidney is unchanged. Abdominal Aorta: Abdominal portion non-dilated. Bowel: No obstruction or bowel wall thickening. Appendix is unremarkable. Peritoneal Cavity: No ascites, collection or mesenteric inflammatory response. No free air. Lymph Nodes: Within normal limits. Bones: Within normal limits for the patient's age. Soft Tissues: Unremarkable. Lumbar spine CT recons: Mild degenerative changes are present. No acute fractures or subluxations. PELVIS: Bladder: Symmetric distention, no gross wall thickening. Reproductive Organs: Unremarkable as visualized. Lymph Nodes: Within normal limits. Bones: Within normal limits for the patient's age. IMPRESSION: 1. No acute thoracic, abdominal or pelvic process. 2. Stable right renal mass. This is been evaluated on prior CT and MRI examinations with follow-up a bdominal ultrasounds. It is show no significant change in appearance since 2017. 3. No acute fracture or subluxation seen in the thoracic or lumbar spine. 4. Findings were discussed with the emergency department at 2:17 p.m. on 04/17/2023. RADIATION DOSE DELIVERED: 1327.52 mGy.cm Total DLP 1327.52 mGy.cm Total DLP DATA REPOSITORY: All CT scans at this facility are submitted to the National Radiology Data Registry (NRDR) Dose Index Registry (DIR) with the [employer] (ACR). RADIATION OPTIMIZATION: All CT scans at this facility use at least one of these dose optimization te chniques: automated exposure control; mA and/or kV adjustment per patient size (includes targeted exa ms where dose is matched to clinical indication); or iterative reconstruction.
--- NOTE | 2023-04-17 12:40 | W.ED.GENAD ---
Discharge Plan Disposition Patient Disposition: Home Condition: Stable Discharge Details Clinical Impression: Lumbago with sciatica Primary Care Provider: Nikhil Ruff ED Provider: Angy Matamoros Home Meds and New Rx's Prescriptions: New baclofen 5 mg tablet 5 mg PO TID PRN (Reason: muscle spasm) Qty: 7 0RF Rx Instructions: Take one tablet by mouth 3 times daily as needed for muscle spasm. lidocaine 1.8 % adhesive patch,medicated 1 patch topical DAILY Qty: 30 0RF Rx Instructions: leave on most painful area for up to 12 hrs No Action venlafaxine 75 mg capsule,extended release 24hr 75 mg PO DAILY Qty: 90 4RF bupropion HCl 300 mg tablet extended release 24 hr 300 mg PO DAILY Qty: 90 3RF Discharge Instructions Instructions: Sciatica (ED), Low Back Strain (ED) Additional Instructions: CT is within normal limits you do have some degenerative changes or osteoarthritis on your lower spine. Alternate ice and heat. Please take the muscle relaxers and the lidocaine patches as directed. These will make you sleepy do not operate heavy machinery or drive while on the muscle relaxers. Please take Tylenol or Ibuprofen with food every 4-6 hours as needed for pain and swelling. Follow up with primary care provider in 3-5 days. Return to ED sooner if any worsening or concerns. Increase oral fluids. A prescription for baclofen was sent to the pharmacy we have on file for eldon Adams in [place]. Stand Alone Forms: Work Release Referrals: Nikhil Ruff, [facility] [Primary Care Provider] - 5 days Discharge Data Discharge Date/Time-TO BE ENTERED AT DEPARTURE: 04/17/23 14:38 Medical Decision Making 37-year-old female presents to the ER with a chief complaint of back pain intermittently over the last few months she reports worsening over the last few days having a hard time walking. She reports radiation of her pain into her bilateral legs down to her ankles. Denies any loss of bowel or bladder control denies any saddle anesthesia, she does have some thoracic tenderness midline with palpation, she also has some radiation into her legs. She has been taking ibuprofen and smoking marijuana with little to no relief. Past medical history include anxiety GERD depression, right renal mass, gastritis. She reports movement makes the pain worse. Urinalysis, urine ordered CT abdomen pelvis without contrast ordered with recon on T and L-spine due to CVA tenderness and history of renal mass. CT within normal limits. Some small degenerative changes in the lumbar spine. Patient discharged with musculoskeletal strain instructions. Given baclofen prescription 3 times daily as needed for muscle spasm. This text was generated using [employer] system, please disregard any oddities of phrase or misspellings. Lab Data Lab results reviewed: Yes I reviewed the patient's lab results. Labs: Laboratory Tests Range/Units 04/17/23 12:46 Urine Color (Yellow) Yellow Urine Clarity (Clear) Cloudy Urine pH (5-8) 5.5 Ur Specific Franklin (1.005-1.025) >= 1.030 H Urine Protein (Negative) mg/dL Trace H Urine Ketones (Negative) mg/dL 15 H Urine Blood (Negative) Negative Urine Nitrite (Negative) Negative Urine Bilirubin (Negative) Negative Urine Urobilinogen (Up to 0.2) mg/dL 0.2 Ur Leukocyte Esterase (Negative) Negative Urine RBC (0-2) HPF Negative Urine WBC (0-5) HPF 3-5 Ur Epithelial Cells (Negative) HPF Many Urine Crystals (Negative) HPF Negative Urine Bacteria (Negative) HPF Moderate Urine Casts (Negative) LPF Negative Urine Mucus (Negative) Heavy Urine Other (Negative) Negative Ur Culture Indicated? No/Sq. Contamination Urine Glucose (Negative) mg/dL Negative HPI General Mode of arrival: ambulatory. Date/Time Provider Initiated Documentation: 04/17/23 11:56. Limitations to Documentation: no limitations. Information obtained by: patient, RN notes reviewed and old records reviewed. HPI Narrative: 37-year-old female presents to the ER with a chief complaint of back pain intermittently over the last few months she reports worsening over the last few days having a hard time walking. She reports radiation of her pain into her bilateral legs down to her ankles. Denies any loss of bowel or bladder control denies any saddle anesthesia, she does have some thoracic tenderness midline with palpation, she also has some radiation into her legs. She has been taking ibuprofen and smoking marijuana with little to no relief. Past medical history include anxiety GERD depression, right renal mass, gastritis. She reports movement makes the pain worse. Related Data Home Medications Medication Instructions Recorded Confirmed venlafaxine 75 mg capsule,extended 75 mg PO DAILY #90 caps 06/22/22 04/17/23 release 24 hr bupropion HCl 300 mg 24 hr tablet, 300 mg PO DAILY #90 tab-caps 08/29/22 04/17/23 extended release baclofen 5 mg tablet 5 mg PO TID PRN muscle spasm #7 04/17/23 tabs lidocaine 1.8 % topical patch 1 patch topical DAILY Back Pain 04/17/23 #30 ea Previous Rx's Medication Instructions Recorded venlafaxine 75 mg capsule,extended 75 mg PO DAILY #90 caps 06/22/22 release 24 hr bupropion HCl 300 mg 24 hr tablet, 300 mg PO DAILY #90 tab-caps 08/29/22 extended release baclofen 5 mg tablet 5 mg PO TID PRN muscle spasm #7 04/17/23 tabs lidocaine 1.8 % topical patch 1 patch topical DAILY Back Pain 04/17/23 #30 ea Allergies Allergy/AdvReac Type Severity Reaction Status Date / Time Iodinated Contrast Media Allergy Intermediate Rash,nausea Unverified 04/17/23 12:14 [Iodinated Contrast- Oral and IV Dye] Artifical colors, sweeteners Allergy Intermediate Migraines, Uncoded 04/17/23 12:14 or flavors Vomiting General Stated Complaint: Nk/Back Pain JOSE MANUEL: 4 Review of Systems All systems reviewed & are unremarkable except as noted in HPI and below Gastrointestinal Gastrointestinal: Denies diarrhea, Denies nausea and Denies vomiting Genitourinary Genitourinary: Denies urinary incontinence and Denies urinary hesitancy Musculoskeletal Musculoskeletal: Reports as per HPI, Reports abnormal gait, Reports back pain, Denies numbness, Reports radiating pain into limb, Reports stiffness and Denies tingling Neurologic Neurologic: Reports abnormal gait, Denies numbness and Denies tingling PFSH All Active Problems (Updated 04/17/23 @ 14:27 by Angy Matamoros NP) Lumbago with sciatica (Acute) Muscle tension headache (Acute) Anxiety (Chronic) GERD (gastroesophageal reflux disease) (Chronic) Moderate episode of recurrent major depressive disorder (Acute 11/03/16) Medical History Abdominal pain Benign gastric polyp Contraception after in 2014 OCPs then Depo. 10/2016 not sexually active. Depression increased sx since . Has counselor and meds prescribed by PCP. 11/03/16 EPDS score = 15. Gastritis History of migraine Molar Renal mass, right 1.7cm renal mass noted as incidental finding on CT for eval of RLQ pain. 03/26/17 biopsy of mass at [facility] interventional radiology. Path: fibrovascular tissue. Plan repeat CT scan 10/2017. Right renal mass (03/23/17) 03/26/17 R renal bx at [facility] interventional radiology. Path revealed fragments of fibrovascular tissue. Will repeat renal CT 10/2018- no changes, no further action Term delivered Surgical History Dilation and curettage 2011,2012, 2013 for SABs. H/O esophagogastroduodenoscopy (~10/22/18) Family History Mother No problems noted. Grandfather Diabetes Dementia Grandfather Depression Myocardial infarction Stroke Paternal History Osteoporosis Social History Smoking/Tobacco Use Status: Former Tobacco Use tobacco type: cigarettes and smokeless tobacco Second Hand Exposure: Yes Smoking risk assessment performed?: Yes Alcohol Intake: current Alcohol Intake frequency: holidays/special occasions only Alcohol type: hard liquor Drug use: Daily Substance use type: marijuana Caregiver/Support person: No Household members: significant other and children Housing: house Communication Needs: Corrective Lenses Do you need help understanding health information?: Often Pets and animals: No Sexually active: Yes Do you think of yourself as: straight/heterosexual Current gender identity: female What is your relationship status?: living with partner How often do you talk on the phone with friends or family?: three or more times per week How often do you get together with friends or relatives?: three or more times per week Do you belong to any clubs or organized social groups?: no Panel score (0-1 are the most socially isolated patients): 2 What type of physical activity do you participate in: regular exercise Duration: 15-30 minutes/day Frequency: 3-4 times per week Seatbelt use: always Helmet use: Yes Helmet use: always Drive intox or ride w/intox van cdl driver: No Do you feel safe at home: Yes Do you feel safe in your relationship?: Yes Exam Narrative Exam Narrative: Constitutional: Alert and oriented x3. Appears stated age. Normal body habitus. Head: Normocephalic, no trauma. Eyes: Pupils PERRL, Red reflex noted, EOM's intact. Eyelids symmetrical without lesions, discharge, or swelling. Chest: RRR, Normal S1, S2, distal pulses intact. Resp: Lungs clear to auscultation bilaterally, no wheezes, rales, or rhonchi. Abdomen: Soft, non-distended, . Musculoskeletal: Unable to assess gait, 5/5 strength to all four extremities. Mid T-spine tenderness with palpation no crepitus no step-off, she reports it radiates down into her lower back with palpation. Mid L-spine tenderness with palpation no crepitus or step-off. Skin: No suspicious rashes or lesions. Capillary refill less than 2 sec. Neurologic: Cranial nerves II-XII intact. Alert and oriented x 3. Motor: No deficits noted. Sensory: Intact bilaterally all 4 extremities. Hematologic/Lymphatic: No ecchymosis, no lymphadenopathy. Course Vital Signs Vital signs: Vital Signs Temperature 37.2 C 04/17/23 12:06 Pulse 80 04/17/23 12:06 Respiratory Rate 16 04/17/23 12:06 Blood Pressure 130/87 04/17/23 12:06 Pulse Oximetry 99 04/17/23 12:06 Temperature 37.2 C 04/17/23 12:06 Temperature Source Oral 04/17/23 12:06 Pulse 80 04/17/23 12:06 Respiratory Rate 16 04/17/23 12:06 Respiratory Effort Normal, Non-Labored 04/17/23 12:11 Blood Pressure 130/87 04/17/23 12:06 Blood Pressure Position Sitting 04/17/23 12:06 Pulse Oximetry 99 04/17/23 12:06 Oxygen Delivery Method Room Air 04/17/23 12:06 Oxygen Flow Rate 0 04/17/23 12:06 Pain Level 10 04/17/23 12:11 PAWSS Have you Been Recently Intoxicated or Drunk Within the Last 30 days?: Yes Have you Ever Experienced Previous Episodes of Alcohol Withdrawal?: No Have you ever Experienced Withdrawal Seizures?: No Have you ever Experienced Delirium Tremens(DT)s?: No Have you ever undergone Alcohol Rehabilitation Treatment (i.e, inpt ot outpatient treatment programs)?: No Have you ever Experienced Blackouts?: No Have you ever Combined Alcohol with other Downers within the last 90 days?: No Have you ever Combined Alcohol with any other Substance of Abuse during the last 90 days?: Yes Positive Blood Alcohol level on Presentation? [PCS.BAL]: No Evidence of Increased Autonomic Activity (i.e. HR>120, tremor, sweating, agitation, nausea)?: No Result: 3
[2023-04-17] MEDS: Cyclobenzaprine 10 MG TAB PO (12:51)
[2023-04-17] MEDS: Lidocaine 5% Patch 1 PATCH TP (12:51)
[2023-04-17] MEDS: Acetaminophen 325 MG TAB 650 MG PO (12:51)
[2023-04-17 13:14] LABS: Bilirubin Negative (Negative); Blood Negative (Negative); Clarity Cloudy (Clear); Glucose Negative (Negative); Ketones 15 mg/dL (Negative); Leukocyte Esterase Negative (Negative); Nitrite Negative (Negative); Specific Gravity >= 1.030 (1.005-1.025); Urobilinogen 0.2 mg/dL (Up to 0.2); pH 5.5 (5-8)
[2023-04-17 13:35] LABS: Bacteria Moderate HPF (Negative); C & S Indicated? No/Sq. Contamination; Casts Negative LPF (Negative); Crystals Negative HPF (Negative); Epithelial Cells Many HPF (Negative); Mucus Heavy (Negative); Other Cells Negative (Negative); RBC Negative HPF (0-2)
== END 2023-04-17 14:38 | disposition home or self-care (01) ==
PROVIDERS: Emergency Provider Registered Nurse Emergency; PCP Nurse Practitioner Family
DX: N28.89 Other specified disorders of kidney and ureter (principal); E27.9 Disorder of adrenal gland, unspecified; M54.41 Lumbago with sciatica, right side
CPT/HCPCS: 71250; 81025; 99284; 74176; 81003; 81015

== ENCOUNTER 2023-09-14 14:27 | Outpatient (REF) | payer MEDICAID, SELFPAY ==
--- NOTE | 2023-09-14 14:00 | PAPFT_PTH ---
PATIENT: Shey Kemp LOC: [facility] U#:[id number] AGE/SX: 38/F ROOM: RE09/14/[address]: Mayda Wasserman DO : 1985 BED: DIS: 09/14/2023 SPEC #: [id number] RECD: 09/14/23 17:45 STATUS: JUANITO REQ #: [id number] JENNIFER: 09/14/23 14:[address]: Mayda Wasserman DEPT: [facility] Cytology RECD BY: Coleen Bañuelos ENTERED: 09/14/23 17:45 SP TYPE: PAPFT OTHR DR: Nikhil Bryan DNP Tissues: 1 - CX/ENDOCX FOR PAP SMEARS Procedures: PAP THIN PREP/UVM Screening HPV DNA PROBE Comments: [id number] (CHLAMYDIA/GC)
[2023-09-17 16:04] LABS: Chlamydia Result Negative (Negative); GC Result Negative (Negative)
== END 2023-09-14 14:28 | disposition home or self-care (01) ==
LOC: LBN 14:27
PROVIDERS: PCP Nurse Practitioner Family; Visit Provider Obstetrics & Gynecology
DX: Z12.4 Encounter for screening for malignant neoplasm of cervix (principal)
CPT/HCPCS: 87491; 87591; 88142; 87624

== ENCOUNTER 2023-09-14 14:59 | Outpatient (CLI) | payer MEDICAID, SELFPAY ==
[2023-09-17 09:59] LABS: HIV-1/2 Ag & Ab Screen Negative (Negative)
[2023-09-17 10:15] LABS: Hepatitis A Antibody IgM Negative (Negative); Hepatitis B Core Antibody Negative (Negative); Hepatitis B surface Ag Negative (Negative); Hepatitis C Ab w Rflx HCV PCR Negative (Negative)
[2023-09-17 11:01] LABS: Syphilis Serology (RPR) Negative (Negative)
== END 2023-09-14 15:00 | disposition home or self-care (01) ==
LOC: LBO 14:59
PROVIDERS: PCP Nurse Practitioner Family; Visit Provider Obstetrics & Gynecology
DX: Z20.2 Contact with and (suspected) exposure to infections with a predominantly sexual mode of transmission (principal); Z11.59 Encounter for screening for other viral diseases; Z11.4 Encounter for screening for human immunodeficiency virus [HIV]
CPT/HCPCS: 36415; 86704; 86709; 86803; 87340; 87389; 86592

== ENCOUNTER 2024-06-23 11:39 | Emergency (ER) | payer MEDICAID, SELFPAY ==
[2024-06-23 11:41] VITALS: BP 181/99; PULSE 98; RESP 15; TEMP 37.5; O2SAT 98
[2024-06-23 12:02] VITALS: BP 170/90
[2024-06-23 12:17] LABS: Abs Immature Grans 0.06 10^3/uL (0.0-0.06); Absolute Basophil Count 0.03 10^3/uL (0.0-0.2); Absolute Eosinophil Count 0.01 10^3/uL (0.0-0.7); Absolute Lymphocyte Count 1.44 10^3/uL (1.2-3.4); Absolute Monocyte Count 0.42 10^3/uL (0.1-0.8); Absolute Neutrophil Count 6.62 10^3/uL (1.2-6.7); Basophils % 0.3 %; Eosinophils % 0.1 %; HCT 45.8 % (36.0-46.0); HGB 15.2 g/dL (11.2-15.7); Immature Grans % 0.7 %; Lymphocytes % 16.8 %; MCHC 33.2 % (32.0-36.0); MCV 90 fL (80-95); Monocytes % 4.9 %; Neutrophils % 77.2 %; Platelet Count 383 10^3/uL (130-400); RBC 5.07 10^6/uL (3.93-5.22); RDW 12.9 % (11.7-14.6); RDW-SD 42.5 fL; WBC 8.58 10^3/uL (4.4-10.8)
[2024-06-23 12:48] LABS: Anion Gap 9.4 mmol/L (3-11); BUN 14 mg/dL (7-18); CO2 26.6 mmol/L (21.0-32.0); CREATININE 0.9 mg/dL (0.55-1.02); Chloride 103 mmol/L (98-107); Glucose 151 mg/dL (74-106); Potassium 3.1 mmol/L (3.5-5.1); Sodium 139 mmol/L (136-145); TSH (W/Ref FT4) 1.14 uIU/mL (0.36-3.74)
[2024-06-23 12:53] LABS: ETHANOL BLOOD < 3.0 mg/dL (<10)
[2024-06-23] MEDS: Potassium Chloride Liquid 20 MEQ PKT 40 MEQ PO (14:10)
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
--- NOTE | 2024-06-23 14:33 | CMSP_ITS ---
Date of service: 06/23/24 Time of Service: 14:33 Care Management Safety Plan Status Status: Voluntary Reason for Wait Reason for Wait: Community Placement (care bed) Safety Plan Safety Plan: VOLUNTARY FOR INPATIENT PSYCHIATRIC STABILIZATION.? Patient is appropriate in all interactions since arriving at [facility]; Pt has demonstrated appropriate coping and communication skills, has articulated his or her needs and concerns and is fully engaged during staff interactions. Safety plan has been established with patient, and care team, to adhere to patient goals, identify restrictions based on behavioral status, address nutrition, and determine allowed personal belongings, tools for hygiene and personal care. Determine level of activity including ambulation, level of supervision, visitors, and determine privileges based on behaviors and level of engagement by pt. VOLUNTARY SAFETY PLAN: 1. Will remain on suicide precautions, in paper clothes 2. Will remain in Zone B under direct supervision of one-on-one staff at all times provided by [employer]; JEREMIAH, MESH WORKER single stroke preformer. 3. May have paper cups, plates, finger foods as well as a cardboard spoon with which to eat meals. 4. Follow [facility] Management of the Admitted Behavioral Health Patient policy. 5. Shower available in Zone B without restriction. 6. Personal belongings-soft items permitted at RN discretion. 7. Visitors-none at this time. 8. Activities: soft cart items approved per RN discretion. 9.? Bathroom available in Zone B without restriction. 10. Phone: limited to [facility] cordless phone at RN discretion. Due to VOLUNTARY status, if patient wishes to leave [facility], staff will contact [facility] Crisis Screener ([phone]) and [employer] Supervisor ([phone]) as soon as possible. In the event of elopement, notify [facility] Police ([phone]). Patient is currently voluntarily at [facility] and seeking inpatient admission when a bed becomes available. [facility] Frontline [employer] Production Supervisor will continue seeking placement. Please contact the [employer] Supervisor ([phone]) and [facility] Spring Production Supervisor ([phone]) for any needed changes in the Safety Plan. Safety plan has been provided to interdepartmental care team.
--- NOTE | 2024-06-23 14:33 | PDOC.CMSAFE ---
Date of service: 06/23/24 Time of Service: 14:33 Care Management Safety Plan Status Status: Voluntary Reason for Wait Reason for Wait: Community Placement (care bed) Safety Plan Safety Plan: VOLUNTARY FOR INPATIENT PSYCHIATRIC STABILIZATION.? Patient is appropriate in all interactions since arriving at [facility]; Pt has demonstrated appropriate coping and communication skills, has articulated his or her needs and concerns and is fully engaged during staff interactions. Safety plan has been established with patient, and care team, to adhere to patient goals, identify restrictions based on behavioral status, address nutrition, and determine allowed personal belongings, tools for hygiene and personal care. Determine level of activity including ambulation, level of supervision, visitors, and determine privileges based on behaviors and level of engagement by pt. VOLUNTARY SAFETY PLAN: 1. Will remain on suicide precautions, in paper clothes 2. Will remain in Zone B under direct supervision of one-on-one staff at all times provided by [employer]; JEREMIAH, SURGERY NURSE grain wafer machine operator. 3. May have paper cups, plates, finger foods as well as a cardboard spoon with which to eat meals. 4. Follow [facility] Management of the Admitted Behavioral Health Patient policy. 5. Shower available in Zone B without restriction. 6. Personal belongings-soft items permitted at RN discretion. 7. Visitors-none at this time. 8. Activities: soft cart items approved per RN discretion. 9.? Bathroom available in Zone B without restriction. 10. Phone: limited to [facility] cordless phone at RN discretion. Due to VOLUNTARY status, if patient wishes to leave [facility], staff will contact [facility] Crisis Screener ([phone]) and Inspector Final Assembly Electrical ([phone]) as soon as possible. In the event of elopement, notify [facility] Police ([phone]). Patient is currently voluntarily at [facility] and seeking inpatient admission when a bed becomes available. [facility] Frontline Shipper will continue seeking placement. Please contact the Inspector Final Assembly Electrical ([phone]) and [facility] Shipper ([phone]) for any needed changes in the Safety Plan. Safety plan has been provided to interdepartmental care team.
[2024-06-23 14:42] LABS: *AMPHETAMINES SCREEN URINE Negative (Negative); *BARBITURATES SCREEN URINE Negative (Negative); *BENZODIAZEPINES SCREEN URINE Negative (Negative); Cannabinoids THC Positive (Negative); Cocaine Screen,Urine Negative (Negative); METHADONE URINE SCREEN Negative (Negative); OPIATES URINE SCREEN Negative (Negative)
[2024-06-23 14:45] LABS: Tricyclic Antidepressants Negative (Negative)
[2024-06-23] MEDS: ALPRAZolam 0.5 MG TAB PO (16:06)
--- NOTE | 2024-06-23 16:21 | PDOC.MHCN ---
Date of service: 06/23/24 Time of Service: 16:22 PHQ-9 Over the last 2 weeks, how often have you been bothered by any of the following problems? 1. Little interest or pleasure in doing things: not at all 2. Feeling down, depressed, or hopeless: nearly every day 3. Trouble falling or staying asleep, or sleeping too much: nearly every day 4. Feeling tired or having little energy: nearly every day 5. Poor appetite or overeating: nearly every day 6. Feeling bad about yourself - or that you are a failure or have let yourself and your family down: nearly every day 7. Trouble concentrating on things, such as reading the newspaper or watching television: nearly every day 8. Moving or speaking so slowly that other people could have noticed? - Or the opposite - being so fidgety or restless that you have been moving around a lot more than usual: not at all 9. Thoughts that you would be better off or of hurting yourself in some way: several days Total score: 19 If you checked off any problems, how difficult have these problems made it for you to do your work, take care of things at home, or get along with other people?: extremely difficult Source: Developed by Drs. Joe Ruelas, Batsheva Phelps, Gui Hayden and colleagues, with an educational jennifer from [employer]. Suicide Severity Rate CSSRS Have you wished you were or wished you could go to sleep and not wake up?: Yes Have you actually had any thoughts of killing yourself?: Yes CSSRS2 Have you been thinking about how you might do this?: Yes Have you had these thoughts and had some intention of acting on them?: Yes Have you started to work out or worked out the details of how to kill yourself? Do you intend to carry out this plan?: Yes CSSRS3 Have you ever done anything, started to do anything or prepared to do anything to end your life?: Yes CSSRS4 Was this within the past three months?: Yes Screening Score Total Score: 8 Screening: Positive Mental Health Emergency Note Release [facility] release signed:: Yes Reason for Visit In the last 2 weeks has the pt presented for ES prior to today?: Unknown Client Information Client is: Adult Outpatient Well Housed: Yes Non Suicidal Self Injury Current: Yes, burning with a sales operations lead when overwhelmed emotionally. History: yes, burning self with a sales operations lead. Safety Risk/Harm to Self or Others Current Ideation to Harm Self or Others: Yes to self. Intent: no, has no intent. Plan: yes,has a plan. History of suicide attempt: yes,history of suicide attempt reported. Details of previous suicide attempt: Post 9 years ago wanted to hang herself the thought of leaving her daughter without a mother was her and is her deterrent. Risk: Does risk to harm exist?: yes. Risk: Moderate Risk Duty to warn indicated: No Asssessment/Mental Status Appearance: Disheveled Attitude: Cooperative Behavior: Unremarkable Speech: Normal Affect: Flat and Cogruent with mood Mood: Depressed Thought process: Goal directed Hallucinations: No Delusions: No Attention: Unremarkable Perception: Not impaired Orientation: Fully orientated Memory: Intact Insight: Good Judgement: Good Neurovegetative Symptoms Sleep: No change Appetitie: Decrease Interests: No change Energy: No change Libido: Not applicable Substance Use: Drug Issues: Dependence Do you use nicotine?: Yes Have you used substances in the last 7 days?: yes, THC Additional Issues: Assaultive/Threatening Behavior: No Medical Concerns: No Client engaged in active self harm w/weapon: No Threatening to run away: No Child reported abuse/neglect: No Voluntarily presenting for services: Yes Domestic violence is a concern: No Extreme Psychosis or extreme behavior is present: No Impression The client is a single, , female and mother of one. The client uses She/Her/Them pronouns. All underrepresented identifiers were honored during this assessment. The client participated in all screening tools, including the CSSRS. The client is open to a referral for therapy who would be able to assist with the cams resource. The client is sitting on her bed in hospital attire. Her hair is disheveled. The client?s mood is depressed and at times cheerful. Speech is normal, thought process is goal oriented and she shows good insight and judgment. There are no observations of thought disorders. The client reported a decrease in appetite and notes that her sleep has been OK. Resources Reosurces reviewed and given:: [facility] Plan/Disposition Recommended Disposition: [facility] Services [facility] Services: Therapy and Psychiatric Evaluation. Plan: The client is open to referrals for therapy and medication management. The client expressed a need for a higher level of care and is willing to try [facility] as a hospital diversion instead of inpatient. This clinician made the referral to [facility]. The client was accepted to the [facility] for admission on June 24. Person reported agreement to plan: Yes Reports/communication Outcome discussed with: ED/Personnel
--- NOTE | 2024-06-23 16:48 | ED.PROG_ITS ---
Date of service: 06/23/24 Time of Service: 14:00 Medical Decision Making In brief, this is a 38-year-old female patient who is voluntarily boarding in our emergency department with suicidal ideation, awaiting care bed which will be available in the morning. She has been medically cleared, did receive a dose of Xanax for symptomatic management of anxiety on the last shift, but has not required any sedation, restraint, or other acute intervention. The patient endorsed some increasing anxiety and stress this evening, for which she received her scheduled dose of Seroquel to good effect. The patient was sleeping on my reevaluation after this medication. She remained hemodynamically appropriate, calm, cooperative, and comfortable, and was transferred to the oncoming team pending final disposition. Jennyfer Cintron MD Medical Records Medical records reviewed: Yes I reviewed the patient's medical records. Lab Data Lab results reviewed: Yes I reviewed the patient's lab results. Quality:SDOH Health Related Social Needs: Health related social needs housing instability, house d, with risk of homelessness(Z59.811), problem related to primary support group(Z63.9) Health related social needs details referred to Shruthi riley Sign Out Sign Out Data: Sign Out Comment: presenting with depression, SI. prior plan to jump into river. medically cleared, eval'd by [facility] will try to get her into care bed, if not available then will proceed with voluntary inpatient placement PRNs and home meds ordered Last updated by Joseph Lorenzo MD at 06/23/24 16:30 Discharge Plan Discharge Details Chief Complaint: PsychEval Primary Care Provider: Nikhil Ruff ED Provider: Jennyfer Cintron Home Meds and New Rx's Prescriptions: No Action venlafaxine 150 mg capsule,extended release 24hr 150 mg PO DAILY Qty: 90 4RF Patient Comments: brought to pharmacy Rx Instructions: dose increase bupropion HCl 300 mg tablet extended release 24 hr 300 mg PO DAILY Qty: 90 3RF Patient Comments: brought to pharmacy Rx Instructions: start with 150 mg once daily, increase to 2 caps daily after 1-2 weeks
[2024-06-23 18:49] VITALS: BP 127/75; PULSE 81; RESP 20; TEMP 37.1; O2SAT 98
[2024-06-23] MEDS: QUEtiapine 25 MG TAB 50 MG PO (19:27)
--- NOTE | 2024-06-23 23:36 | ED.PROG_ITS ---
Date of service: 06/23/24 Time of Service: 23:37 Medical Decision Making This patient was signed out to me. Please see previous notes for H&P and initial eval. In brief, 38yo F presenting with SI, medically cleared, voluntary, seen by [facility] and plan for care bed in the morning. Overnight no acute events. Will be signed out to oncoming physician, plan remains as above. Quality:SDOH Health Related Social Needs: Health related social needs housing instability, house d, with risk of homelessness(Z59.811), problem related to primary support group(Z63.9) Health related social needs details referred to Shruthi riley Sign Out Sign Out Data: Sign Out Comment: presenting with depression, SI. prior plan to jump into river. medically cleared, eval'd by [facility] will try to get her into care bed, if not available then will proceed with voluntary inpatient placement PRNs and home meds ordered Last updated by Joseph Lorenzo MD at 06/23/24 16:30 Sign Out Comment: 38-year-old female patient boarding in our emergency department with suicidal ideation and a plan to jump into the river, voluntary and medically cleared. Plan for care bed in the morning, has not required any restraint. Last updated by Jennyfer Cintron MD at 06/23/24 23:30 Discharge Plan Discharge Details Chief Complaint: PsychEval Primary Care Provider: Nikhil Ruff ED Provider: Harika Montoya Home Meds and New Rx's Prescriptions: No Action venlafaxine 150 mg capsule,extended release 24hr 150 mg PO DAILY Qty: 90 4RF Patient Comments: brought to pharmacy Rx Instructions: dose increase bupropion HCl 300 mg tablet extended release 24 hr 300 mg PO DAILY Qty: 90 3RF Patient Comments: brought to pharmacy Rx Instructions: start with 150 mg once daily, increase to 2 caps daily after 1-2 weeks
[2024-06-24 07:51] VITALS: BP 153/98; PULSE 106; TEMP 36.7; O2SAT 98
--- NOTE | 2024-06-24 07:54 | W.EDPROG ---
Date of service: 06/24/24 Time of Service: 07:54 Medical Decision Making I received signout on this 38-year-old patient in the emergency department voluntarily in setting of suicidal ideation. Patient is medically cleared. Reportedly plan is for patient to undergo transfer for placement in a care bed later today. 11:15 AM I signed paperwork to have the patient transferred to the care bed. I wrote her for prescriptions of bupropion venlafaxine and quetiapine. 12:46 PM I met with the patient. She was calm. I advised ED return for symptoms worsened or did not improve. She reported that she did not alone or have access to handguns. Quality:SDOH Health Related Social Needs: Health related social needs housing instability, housed, with risk of homelessness(Z59.811), problem related to primary support group(Z63.9) Health related social needs details referred to [employer] Sign Out Sign Out Data: Sign Out Comment: presenting with depression, SI. prior plan to jump into river. medically cleared, eval'd by [facility] will try to get her into care bed, if not available then will proceed with voluntary inpatient placement PRNs and home meds ordered Last updated by Joseph Lorenzo MD at 06/23/24 16:30 Sign Out Comment: 38-year-old female patient boarding in our emergency department with suicidal ideation and a plan to jump into the river, voluntary and medically cleared. Plan for care bed in the morning, has not required any restraint. Last updated by Jennyfer Cintron MD at 06/23/24 23:30 Sign Out Comment: SI, medically cleared, plan for care bed today Last updated by Harika Montoya MD at 06/24/24 07:43 Discharge Plan Disposition Patient Disposition: Other Disposition Not Listed Other Facility: Care bed Discharge Details Clinical Impression: Suicidal ideation Primary Care Provider: Nikhil Ruff ED Provider: Kulwant Tinoco Home Meds and New Rx's Prescriptions: New quetiapine 25 mg tablet 25 mg PO QHS Qty: 30 0RF Continued venlafaxine 150 mg capsule,extended release 24hr 150 mg PO DAILY Qty: 90 4RF Patient Comments: brought to pharmacy Rx Instructions: dose increase bupropion HCl 300 mg tablet extended release 24 hr 300 mg PO DAILY Qty: 90 3RF Patient Comments: brought to pharmacy Rx Instructions: start with 150 mg once daily, increase to 2 caps daily after 1-2 weeks Discharge Instructions Instructions: Suicide Prevention Additional Instructions: You are seen in the emergency department for your thoughts of self-harm. You were evaluated by [facility] human services. You are being transitioned to a care bed. If you do not feel safe with this plan or if you feel you are at risk of hurting yourself please return to the emergency department. Otherwise please follow-up with your primary care provider next week.
[2024-06-24] MEDS: Venlafaxine 150 MG CAPCR PO (08:16)
[2024-06-24] MEDS: buPROPion-XL 150 MG TABCR 300 MG PO (08:16)
[2024-06-24] MEDS: ALPRAZolam 0.5 MG TAB PO (12:22)
--- NOTE | 2024-06-24 15:33 | ED.PROG_ITS ---
Date of service: 06/24/24 Time of Service: 15:34 Medical Decision Making I sent a prescription for quetiapine to the [facility] in [place]. Quality:SDOH Health Related Social Needs: Health related social needs housing instability, house d, with risk of homelessness(Z59.811), problem related to primary support group(Z63.9) Health related social needs details referred to Shruthi riley Sign Out Sign Out Data: Sign Out Comment: presenting with depression, SI. prior plan to jump into river. medically cleared, eval'd by [facility] will try to get her into care bed, if not available then will proceed with voluntary inpatient placement PRNs and home meds ordered Last updated by Joseph Lorenzo MD at 06/23/24 16:30 Sign Out Comment: 38-year-old female patient boarding in our emergency department with suicidal ideation and a plan to jump into the river, voluntary and medically cleared. Plan for care bed in the morning, has not required any restraint. Last updated by Jennyfer Cintron MD at 06/23/24 23:30 Sign Out Comment: SI, medically cleared, plan for care bed today Last updated by Harika Montoya MD at 06/24/24 07:43 Discharge Plan Disposition Patient Disposition: Other Disposition Not Listed Other Facility: Care bed Discharge Details Clinical Impression: Suicidal ideation Primary Care Provider: Nikhil Ruff ED Provider: Kulwant Tinoco Home Meds and New Rx's Prescriptions: New quetiapine 25 mg tablet 25 mg PO QHS Qty: 30 0RF Continued venlafaxine 150 mg capsule,extended release 24hr 150 mg PO DAILY Qty: 90 4RF Patient Comments: brought to pharmacy Rx Instructions: dose increase bupropion HCl 300 mg tablet extended release 24 hr 300 mg PO DAILY Qty: 90 3RF Patient Comments: brought to pharmacy Rx Instructions: start with 150 mg once daily, increase to 2 caps daily after 1-2 weeks Discharge Instructions Instructions: Suicide Prevention Additional Instructions: You are seen in the emergency department for your thoughts of self-harm. You were evaluated by [facility] human services. You are being transitioned to a care bed. If you do not feel safe with this plan or if you feel you are at risk of hurting yourself please return to the emergency department. Otherwise please follow-up with your primary care provider next week. Discharge Data Discharge Date/Time-TO BE ENTERED AT DEPARTURE: 06/24/24 14:37
== END 2024-06-24 14:37 | disposition other institution (70) ==
PROVIDERS: Emergency Medicine; Emergency Provider Emergency Medicine; PCP Nurse Practitioner Family
DX: R45.851 Suicidal ideations (principal); F32.A Depression, unspecified; E87.6 Hypokalemia; E11.65 Type 2 diabetes mellitus with hyperglycemia; Z87.891 Personal history of nicotine dependence
CPT/HCPCS: 00123; 36415; 80048; 80307; 81025; 96127; 99285; 80320; 84443; 85025

== ENCOUNTER 2024-09-27 23:41 | Emergency (ER) | payer MEDICAID, SELFPAY ==
--- NOTE | 2024-09-27 00:52 | DI.RAD_ITS ---
Exam(s) XR FOREARM LT XR HAND LT COMPLETE XR WRIST LT COMPLETE EXAM: XR FOREARM LT CLINICAL HISTORY: hit forearm on door, pain mid rad/ulna. TECHNIQUE: 2D digital imaging was performed. Two views of the forearm. Three views of the hand and wrist COMPARISON: CR,XR XR WRIST LT COMPLETE from 09/28/2024 CR,XR XR HAND LT COMPLETE from 09/28/2024 FINDINGS: BONES: Comminuted intra-articular fracture of the distal radius with dorsal angulation. There is sig nificant separation at the articular surface near the ulnar aspect. Ulnar styloid is also fractured. No additional fractures are seen in the wrist and hand. No fractures are noted more proximally in the radius or ulna. The elbow is unremarkable. SOFT TISSUE: Swelling around wrist. IMPRESSION: Unremarkable radiographs of the left forearm. DATA REPOSITORY: RADIATION DOSE DELIVERED:
[2024-09-27 23:40] VITALS: BP 166/105; PULSE 104; RESP 18; TEMP 36.6; O2SAT 98
[2024-09-27] MEDS: Ibuprofen 800 MG TAB PO (23:52)
[2024-09-27] MEDS: Acetaminophen 500 MG TAB 1000 MG PO (23:52)
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
--- NOTE | 2024-09-28 02:19 | DI.VRAD_ITS ---
PROCEDURE INFORMATION: Exam: XR Left Forearm Exam date and time: 09/28/2024 12:42 AM Age: 39 years old Clinical indication: Other: Hit forearm on door, pain mid rad/ulna TECHNIQUE: Imaging protocol: Radiologic exam of the left forearm. Views: 2 views. COMPARISON: No relevant prior studies available. FINDINGS: Bones/joints: Comminuted fracture through the distal radius (Colles fracture). Comminuted fracture through the ulnar styloid. Soft tissues: Moderate soft tissue edema. IMPRESSION: 1. Comminuted fracture through the distal radius (Colles fracture). 2. Comminuted fracture through the ulnar styloid. 3. Moderate soft tissue edema. Dictated and Authenticated by: Elida Pacheco MD. Ordering:DAVION Goddard MD
--- NOTE | 2024-09-28 02:20 | DI.VRAD_ITS ---
PROCEDURE INFORMATION: Exam: XR Left Hand Exam date and time: 09/28/2024 12:44 AM Age: 39 years old Clinical indication: Other: Hit forearm on door, pain mid hand/wrist TECHNIQUE: Imaging protocol: Radiologic exam of the left hand. Views: 3 or more views. COMPARISON: CR XR FOREARM LT 09/28/2024 12:42 AM FINDINGS: Bones/joints: Comminuted fracture through the distal radius with dorsal angulation, (Colles fracture). Comminuted fracture through the ulnar styloid. Soft tissues: Moderate soft tissue edema. IMPRESSION: 1. Comminuted fracture through the distal radius with dorsal angulation, (Colles fracture). 2. Comminuted fracture through the ulnar styloid. 3. Moderate soft tissue edema. Dictated and Authenticated by: Elida Pacheco MD. Ordering:DAVION Goddard MD
--- NOTE | 2024-09-28 02:21 | DI.VRAD_ITS ---
PROCEDURE INFORMATION: Exam: XR Left Wrist Exam date and time: 09/28/2024 12:57 AM Age: 39 years old Clinical indication: Other: Distal FX TECHNIQUE: Imaging protocol: Radiologic exam of the left wrist. Views: 3 or more views. COMPARISON: CR XR HAND LT COMPLETE 09/28/2024 12:44 AM FINDINGS: Bones/joints: Comminuted fracture through the distal radius with dorsal angulation, (Colles fracture). Comminuted fracture through the ulnar styloid. Soft tissues: Moderate soft tissue edema. IMPRESSION: 1. Comminuted fracture through the distal radius with dorsal angulation, (Colles fracture). 2. Comminuted fracture through the ulnar styloid. 3. Moderate soft tissue edema. Dictated and Authenticated by: Elida Pacheco MD. Ordering:DAVION Goddard MD
[2024-09-28 02:25] VITALS: PULSE 99; RESP 16; O2SAT 99
[2024-09-28 02:55] VITALS: PULSE 101; RESP 18; TEMP 36.6; O2SAT 99
--- NOTE | 2024-09-28 09:43 | NUR.NOTE ---
Access chart to get the information to complete the Surgi Care requisition form. Nursing Note:
== END 2024-09-28 02:55 | disposition home or self-care (01) ==
PROVIDERS: Emergency Provider Student in an Organized Health Care Education/Training Program; PCP Nurse Practitioner Family
DX: S52.572A Other intraarticular fracture of lower end of left radius, initial encounter for closed fracture (principal); S52.612A Displaced fracture of left ulna styloid process, initial encounter for closed fracture; W18.39XA Other fall on same level, initial encounter; Y93.89 Activity, other specified; Y92.018 Other place in single-family (private) house as the place of occurrence of the external cause; Z87.891 Personal history of nicotine dependence
CPT/HCPCS: 99284; 25605; 73090; 73110; 73130

== ENCOUNTER 2024-10-01 10:07 | Day surgery (SDC) | payer MEDICAID, SELFPAY ==
[2024-10-01] VITALS (27 sets, daily range): BP systolic 83–149; BP diastolic 47–91; PULSE 72–94; RESP 16–23; TEMP 35.8–37; O2SAT 91–99; BMI 33.5
[2024-10-01] MEDS: Acetaminophen 500 MG TAB 1000 MG PO (10:55)
[2024-10-01] MEDS: Celecoxib 200 MG CAP 400 MG PO (10:55)
[2024-10-01] MEDS: Lactated Ringers 1,000 ML 80 ML IV ×2 (11:12→15:46)
--- NOTE | 2024-10-01 11:30 | HPE_ITS ---
Assessment and Plan Assessment and plan (1) Closed fracture of left distal radius and ulna: Status: Acute Assessment and plan: Leonela is a 39-year-old female with a comminuted fracture of the left distal radius. I recommend fixation given the intra-articular nature and her young age. I discussed the technical details of the surgery. I reviewed the risk to include bleeding, infection, pain, stiffness, damage nerves and vessels, damage to muscle and tendons. Despite these risk, she elects to proceed. All questions were answered. History of Present Illness Narrative: Leonela is a 39-year-old female, [id number], who was injured while pushing on a door. She suffered a comminuted, intra-articular fracture of the left distal radius along with ulnar styloid fracture. Given the displaced nature of the fracture and the comminution and intra-articular involvement I recommend operative fixation. She does report some significant anxiety but otherwise no other medical issues. No chest pain or shortness of breath. No numbness or tingling. Review of Systems All systems reviewed & are unremarkable except as noted in HPI and below PFSH All Active Problems Depressive disorder (Chronic 05/08/13) Closed fracture of left distal radius and ulna (Acute) Fracture of left ulna (Acute) Acute stress reaction (Acute) STD exposure (Acute) Muscle tension headache (Acute) Anxiety (Chronic) GERD (gastroesophageal reflux disease) (Chronic) Moderate episode of recurrent major depressive disorder (Acute 11/03/16) Medical History Molar (06/06/13) Vulvovaginitis (03/09/14) Vaginal irritation (01/20/15) Hyperemesis gravidarum (09/01/14) Benign gastric polyp Gastritis Abdominal pain Right renal mass (03/23/17) 03/26/17 R renal bx at [facility] interventional radiology. Path revealed fragments of fibrovascular tissue. Will repeat renal CT 10/2018- no changes, no further action Molar Depression increased sx since . Has counselor and meds prescribed by PCP. 11/03/16 EPDS score = 15. Renal mass, right 1.7cm renal mass noted as incidental finding on CT for eval of RLQ pain. 03/10 03/26 biopsy of mass at [facility] interventional radiology. Path: fibrovascular tissue. Plan repeat CT scan 10/2017. Contraception after in 2014 OCPs then Depo. Now sexually active. Will restart Depo-Provera 05/2023. 06/20/2023 History of migraine Term delivered Surgical History H/O esophagogastroduodenoscopy (~10/22/18) Dilation and curettage 2011,2012, 2013 for SABs. Family History Mother No problems noted. Grandfather Diabetes Dementia Grandfather Depression Myocardial infarction Stroke Paternal History Osteoporosis Social History Smoking/Tobacco Use Status: Former Tobacco Use tobacco type: cigarettes and smokeless tobacco Quit Date: 07/11/14 Second Hand Exposure: Yes Smoking risk assessment performed?: Yes Alcohol Intake: current Alcohol Intake frequency: a few times a week Alcohol type: hard liquor Drug use: Daily Substance use type: marijuana Details: last THC 09/27/24. Former EtOH, current court order in place to not drink. Caregiver/Support person: No Household members: significant other and children Housing: house Communication Needs: Corrective Lenses Do you need help understanding health information?: Often Pets and animals: No Sexually active: Yes Do you think of yourself as: straight/heterosexual Current gender identity: female What is your relationship status?: living with partner How often do you talk on the phone with friends or family?: three or more times per week How often do you get together with friends or relatives?: three or more times per week Do you belong to any clubs or organized social groups?: no Panel score (0-1 are the most socially isolated patients): 2 What type of physical activity do you participate in: regular exercise Duration: 15-30 minutes/day Frequency: 3-4 times per week Seatbelt use: always Helmet use: Yes Helmet use: always Drive intox or ride w/intox frontload driver: No Do you feel safe at home: No Do you feel safe in your relationship?: No Additional Social history: As of this preop phone call pt. states she feels safe. 09/30/24 Meds Allergies and Home Medications Allergies Allergy/AdvReac Type Severity Reaction Status Date / Time Iodinated Contrast Media Allergy Intermediate Rash,nausea Verified 10/01/24 10:37 (Iodinated Contrast- Oral and IV Dye) almond Allergy Mild Nausea Verified 10/01/24 10:37 Artifical colors, sweeteners Allergy Intermediate Migraines, Uncoded 10/01/24 10:37 or flavors Vomiting Home Medications ?Medication ?Instructions ?Recorded ?Confirmed ?Type venlafaxine 150 mg 150 mg PO DAILY #90 caps 09/15/23 10/01/24 Rx capsule,extended release 24 hr bupropion HCl 300 mg 24 hr tablet, 300 mg PO DAILY #90 tab-caps 03/28/24 10/01/24 Rx extended release quetiapine 25 mg tablet 25 mg PO QHS #30 tabs 06/24/24 10/01/24 Rx Exam Const General: cooperative, healthy appearing, comfortable and no acute distress Nutritional Appearance: average body habitus Orientation: alert, awake and oriented x3 Extrem Other: Evaluation the left upper extremity is in a splint. Fingers are warm well- perfused. No cyanosis. Sensation intact to light touch of the median, radial, ulnar nerve. Results Imaging Imaging Studies: X-ray of the left wrist demonstrates a comminuted, intra-articular fracture of left distal radius with slight dorsal angulation. Ulnar styloid fracture. Last Vital Signs Temp 37.0 C 10/01/24 10:10 Pulse 90 10/01/24 10:10 Resp 18 10/01/24 10:10 BP 146/86 H 10/01/24 10:10 Pulse Ox 96 10/01/24 10:10
--- NOTE | 2024-10-01 11:54 | PDOC.DSDIS_ITS ---
Date of service: 10/01/24 Discharge Plan Disposition Patient Disposition: Home Condition: Good Discharge Details Reason For Visit: Left distal radius fracture Attending Provider: Chip Garnett Primary Care Provider: Nikhil Ruff Home Meds and New Rx's Prescriptions: New acetaminophen 500 mg tablet 1,000 mg PO Q8H PRN Qty: 90 0RF Rx Instructions: Take two tablets up to every 8 hours as needed for pain ibuprofen 600 mg tablet 600 mg PO TID PRN (Reason: pain) Qty: 60 0RF tramadol 50 mg tablet 50 mg PO Q6H PRN (Reason: severe postoperative pain) Qty: 6 0RF Rx Instructions: Take one tablet up to every 6 hours as needed for severe pain Continued venlafaxine 150 mg capsule,extended release 24hr 150 mg PO DAILY Qty: 90 4RF Patient Comments: brought to pharmacy Rx Instructions: dose increase bupropion HCl 300 mg tablet extended release 24 hr 300 mg PO DAILY Qty: 90 3RF Patient Comments: brought to pharmacy Rx Instructions: start with 150 mg once daily, increase to 2 caps daily after 1-2 weeks quetiapine 25 mg tablet 25 mg PO QHS Qty: 30 0RF Discharge Instructions Additional Instructions: Wrist Fracture Fixation Discharge Instructions Activity: You should keep the hand/wrist elevated as much as possible for the first few days. You may use the other fingers as tolerated but avoid trying to do too much too soon. You may perform light activities with the splint in place. Dressing/Cast: Your splint should stay in place at all times. Do NOT get it wet. You may loosen the GONZALO wrap if you feel it is too tight and then rewrap more loosely. Medications: - You should take Tylenol and Ibuprofen for baseline pain control. - You have been prescribed a stronger pain medication, Tramadol for breakthrough pain. - You may apply ice over the wrist, just double bag so it doesn't get wet. Follow-up: 10-14 days Referrals: Chip Garnett MD [ [facility] STAFF PHYSICIAN] - Equipment/Supplies: Splint and Sling Remove Dressings/Wound Care:: Do Not Remove Shower/Bathe:: Cover Diet:: As Tolerated Discharge Orders Discharge Orders: Discharge Order (Routine); Ordered 10/01/24 Ordered By: Xin Bermeo DS: Diagnosis Discharge Diagnosis (1) Closed fracture of left distal radius and ulna: Status: Acute
--- NOTE | 2024-10-01 12:00 | DI.RAD_ITS ---
Exam(s) XR WRIST LT LIMITED EXAM: XR WRIST LT LIMITED CLINICAL HISTORY: Closed fracture of left distal radius and ulna. TECHNIQUE: 2D and realtime digital imaging was performed. COMPARISON: CR,XR XR WRIST LT COMPLETE from 09/28/2024 FINDINGS: Hard copy images show improvement in the alignment of the comminuted intra-articular fracture of the distal radius. Placement of percutaneous pins. Please see procedure note for details. Fluoro time: 1.17seconds RADIATION DOSE DELIVERED: [place]=0.4 mGy
--- NOTE | 2024-10-01 12:12 | ANES.PREOP_ITS ---
General Info Date of Service Date Performed: 10/01/24 Height: 5 ft 4 in Weight: 88.451 kg Body Mass Index (BMI): 33.5 Surgical Procedure: Operation Date: 10/01/24 13:25 Proposed Procedure Side Surgeon p Wrist ORIF Distal Radius Left Chip Garnett MD Meds Allergies and Home Medications Allergies Allergy/AdvReac Type Severity Reaction Status Date / Time Iodinated Contrast Media Allergy Intermediate Rash,nausea Verified 10/01/24 10:37 (Iodinated Contrast- Oral and IV Dye) almond Allergy Mild Nausea Verified 10/01/24 10:37 Artifical colors, sweeteners Allergy Intermediate Migraines, Uncoded 10/01/24 10:37 or flavors Vomiting Home Medication ?Medication ?Instructions ?Recorded venlafaxine 150 mg 150 mg PO DAILY #90 caps 09/15/23 capsule,extended release 24 hr bupropion HCl 300 mg 24 hr tablet, 300 mg PO DAILY #90 tab-caps 03/28/24 extended release quetiapine 25 mg tablet 25 mg PO QHS #30 tabs 06/24/24 acetaminophen 500 mg tablet 1,000 mg (2 x 500 mg) PO Q8H PRN 10/01/24 pain #90 tabs ibuprofen 600 mg tablet 600 mg PO TID PRN pain #60 tabs 10/01/24 Current Visit Medications: Current Medications Generic Name Dose Route Start Last Admin Trade Name Freq PRN Reason Stop Dose Admin Acetaminophen 1,000 mg 10/01/24 06:00 10/01/24 10:55 Acetaminophen 500 Mg Tab PO 10/01/24 23:59 1,000 mg PREOP LUKE Administration Acetaminophen 650 mg 10/01/24 11:57 Acetaminophen 325 Mg Tab PO 10/31/24 11:56 Q4H PRN PRN Celecoxib 400 mg 10/01/24 06:00 10/01/24 10:55 Celecoxib 200 Mg Cap PO 10/01/24 23:59 400 mg PREOP LUKE Administration Cefazolin Sodium/Dextrose 2 gm in 50 mls @ 100 mls/hr 10/01/24 06:00 Ancef Duplex IVPB 10/01/24 23:59 PREOP LUKE Tranexamic Acid/Sodium Chloride 1,000 mg in 100 mls @ 600 mls/hr 10/01/24 06:00 IVPB 10/01/24 23:59 PREOP LUKE Ringer's Solution 1,000 mls @ 80 mls/hr 10/01/24 07:30 10/01/24 11:12 IV 10/31/24 07:29 80 mls/hr INFUSION LUKE Administration IV Miscellaneous Supplies 1 each 10/01/24 06:00 Iv Access IV 10/01/24 23:59 DIRECTED LUKE Oxycodone HCl 5 mg 10/01/24 11:57 Oxycodone 5 Mg Tab PO 10/31/24 11:56 Q3H PRN PRN Pain Sodium Chloride 0 ml 10/01/24 06:00 Normal Saline Flush 10 Ml Syr IV 10/01/24 23:59 PRN PRN Sodium Chloride 0 ml 10/01/24 06:00 Normal Saline 10 Ml Vial IJ 10/01/24 23:59 DIRECTED PRN Sterile Water 0 ml 10/01/24 06:00 Water,Injection,Sterile 10 Ml Vial IJ 10/01/24 23:59 DIRECTED PRN PFSH Active Problems Active Problems: Problem Status Onset Code Depressive disorder Chronic 05/08/13 F32.A Closed fracture of left distal radius and ulna Acute S52.502A, S52.602A Fracture of left ulna Acute S52.202A Acute stress reaction Acute F43.0 STD exposure Acute Z20.2 Muscle tension headache Acute G44.209 Anxiety Chronic F41.9 GERD (gastroesophageal reflux disease) Chronic K21.9 Moderate episode of recurrent major depressive disorder Acute 11/03/16 F33.1 Medical History Medical History Molar (06/06/13) Vulvovaginitis (03/09/14) Vaginal irritation (01/20/15) Hyperemesis gravidarum (09/01/14) Benign gastric polyp Gastritis Abdominal pain Right renal mass (03/23/17) 03/26/17 R renal bx at [facility] [place]. Path revealed fragments of fibrovascular tissue. Will repeat renal CT 10/2018- no changes, no further action Molar Depression increased sx since . Has counselor and meds prescribed by PCP. 11/03/16 EPDS score = 15. Renal mass, right 1.7cm renal mass noted as incidental finding on CT for eval of RLQ pain. 03/26/17 biopsy of mass at [facility] [place]ology. Path: fibrovascular tissue. Plan repeat CT scan 10/2017. Contraception after in 2014 OCPs then Depo. Now sexually active. Will restart Depo-Provera 05/2023. 06/20/2023 History of migraine Term delivered Surgical History Surgical History H/O esophagogastroduodenoscopy (~10/22/18) Dilation and curettage 2011,2012, 2013 for SABs. Tobacco Smoking/Tobacco Use Status: Former Tobacco Use Passive smoking exposure: Yes Second hand exposure: Yes Alcohol Alcohol Intake: current Alcohol intake frequency: a few times a week Alcohol type: hard liquor Substance Use Substance use: Daily Substance use type: marijuana Details: last THC 09/27/24. Former EtOH, current court order in place to not drink. Vital Signs and Lab Results Vital Signs Most Recent Vital Signs in EMR: Most Recent Vital Signs Temp Pulse Resp BP Pulse Ox 37.0 C 90 18 146/86 H 96 10/01/24 10:10 10/01/24 10:10 10/01/24 10:10 10/01/24 10:10 10/01/24 10:10 Point of Care Results Point of Care Results: POC- Test(urine) Negative 10/01/24 10:53 Lab Results Blood Type / Crossmatch: No Data to Display Complete Blood Count: No Data to Display Complete Metabolic Panel: No Data to Display Liver Function Panel: No Data to Display Coagulation Panel: No Data to Display Cardiac Panel: No Data to Display Arterial Blood Gas: No Data to Display Venous Blood Gas: No Data to Display Pancreas Panel: No Data to Display Thyroid Panel: No Data to Display Infectious Disease: No Data to Display Blood Cultures: No Data to Display Toxicology Panel: No Data to Display Panel: No Data to Display Anesthesia Assessment and Plan Anesthesia History Personal History: No History of Anesthesia Complications Family History: No Family History of Anesthesia Complications Exercise Tolerance Exercise Tolerance: Metabolic Equivalents>4 Pertinent Negatives Pertinent Negatives: No Symptoms of GERD Cardiac & Pulmonary Exam Cardiac Exam: Normal S1/S2 Heart Sounds Pulmonary Exam: Clear Bilateral Breath Sounds Implantable Cardiac Device Does patient have a Pacemaker or an ICD?: No Airway Exam Known Difficult Airway: No Mallampati Class: 2 Mouth Opening: Normal (> 3cm) Thyromental Distance: Greater than 3 cm Neck Range of Motion: Full ROM Neck Circumference: Normal Teeth Condition: Normal Dentition ASA Classification ASA Score: ASA 2 Emergency Case?: No NPO Status NPO Status: NPO Clears >2 hours, Solids >8 hours Status Status: Not Relevant due to Medical History and Negative HCG Anesthesia Plan Resuscitation Status: Full Code Anesthesia Technique: General Anesthesia Airway Planned: Endotracheal Tube Pain Management: Surgeon and patient request nerve block Monitors Used: Standard Monitors
--- NOTE | 2024-10-01 13:01 | W.ANESNERVE ---
Nerve Block Single Injection Procedure Date and Time Date Performed: 10/01/24 Procedure Start: 12:25 Location Where Procedure Performed Procedure Location: Day Surgery Unit Reason Performed: Postoperative Analgesia Requesting Provider: Chip Garnett Timeout Performed Timeout Performed: Yes Monitoring Used ECG, Blood Pressure, SpO2 and See EMR for corresponding vital signs Sterility Sterility: Hand Hygiene, Surgical Cap, Surgical Mask, Sterile Gloves, Eye Protection and Chlorhexidine Sedation Given During Procedure Sedation Given (Indicate Dose Given): Versed IV Dose:: 3mg IVP Patient Mental Status Patient Mental Status: Sedate with meaningful communication Nerve Block 1st Nerve Block: Laterality: Left Block Type: Supraclavicular Ultrasound Image Saved?: Yes Needle / Catheter Used: 100mm SonoPlex II Local Anesthetic Bolus (Indicate Dose Given): Lidocaine used for local infiltration of skin and Ropivacaine 0.5% Dose:: 0.5%/20cc (100mg) Additives (Indicate Dose Given): Epinephrine to make 1:200,000 (5mcg/ml) Dose:: 100mcg and Decadron Dose:: 10mg PF Ultrasound: Sterile probe cover and gel used Nerve Stimulator: Not Used Paresthesia: None Post Procedure Pain score (0-10): 0 Procedure Tolerated: No Complications and Patient tolerated well Procedure Outcome: Successful Performed By: Myles Deng
[2024-10-01] MEDS: ceFAZolin 2 GM/50 ML BAG IVPB (14:09)
[2024-10-01] MEDS: TRANEXAMIC ACID/SOD. CHL. 1,000 MG/100 ML BAG 600 MG IVPB (14:23)
[2024-10-01] MEDS: Bupivacaine 0.5% Pres-Free W/EPI 30 ML VIAL (15:36)
--- NOTE | 2024-10-01 16:27 | W.ANESPOSTOP ---
Postoperative Evaluation Date, Time and Location Date Performed: 10/01/24 Time Performed: 16:28 Patient Location: PACU Vital Signs Most Recent Imported Vital Signs: Most Recent Vital Signs Temp Pulse Resp BP Pulse Ox 36.5 C 78 18 100/57 L 94 10/01/24 16:20 10/01/24 16:25 10/01/24 16:25 10/01/24 16:21 10/01/24 16:25 Pain Score Most Recent Pain Score: Most Recent Pain Score Pain Level 0 10/01/24 16:20 Assessment Mental Status: Arousable with meaningful communication Airway and Respiratory Function: Patent airway with normal (patient baseline) respiratory exam Cardiovascular Function: Hemodynamically Stable Hydration Status: Adequately Hydrated Nausea & Vomiting: No Nausea or Vomiting Pain: Pt. Denies Any Pain Peripheral Nerve Block: Regional nerve block not resolved at time of post operative discharge
--- NOTE | 2024-10-01 17:00 | W.PM.OP ---
Operative Note Operative Note PRE-OP DIAGNOSIS: LEFT Distal Radius Fracture POST-OP DIAGNOSIS: same PROCEDURE: Open Reduction and Internal Fixation of Left Distal Radius SURGEON: Chip Garnett [employer] SUPERVISOR: Xin Bermeo ANESTHESIA TYPE: General LMA/ETT Refer to Anesthesia Record ESTIMATED BLOOD LOSS: 5 PATHOLOGY: none sent TOURNIQUET TIME: 55 COMPLICATIONS: None Patient was transported to: PACU Patient's condition: stable Indications: Leonela is a 39 year old female for whom I was consulted due to a distal radius fracture. Given the deformity, displacement, fracture pattern, and effect on daily function, I recommended surgical fixation. I reviewed the risk of the procedure to include bleeding, infection co-pay, stiffness, damage to nerves and vessels, damage to muscles and tendons, malunion, nonunion, hardware prominence, tendon rupture, need for repeat procedures. Despite these risks, the patient elected to proceed. Findings: There is a distal radius fracture which had 3 total parts, 2 epiphyseal fragments. It was reduced with direct reduction and K wires and then fixed with a Synthes volar locking plate. Procedure Description: Leonela was greeted in the preoperative holding area. The correct patient and site was confirmed and marked. The history and physical was updated. The consent was reviewed the patient and signed. A supraclavicular block was administered in the day surgery unit. The patient was taken to the operating room and placed in the supine position. All bony problems were well-padded. The left arm was placed onto a radiolucent hand table. A nonsterile tourniquet was placed high up on the arm. Prophylactic antibiotics in the form of cefazolin were administered. The left arm was prepped with ChloraPrep and draped in a standard fashion. A timeout was performed for safe surgery. A standard longitudinal incision was made overlying the flexor carpi radialis tendon starting at the distal wrist crease and moving proximally. The skin was incised sharply. The flexor carpi radialis tendon and its sheath is identified. The sheath was opened. The tendon was moved ulnarly in the floor of the sheath was incised. Blunt dissection the flexor pollicis longus muscle belly and tendon were also made radially exposing the pronator quadratus and the distal radius. The printer quadratus was elevated with an ulnar-based flap. This exposed the volar distal radius and the fracture. A sandoval elevator was used for full exposure of the volar surface of the distal radius. The primary fracture line was exposed. Using a series of elevators, curettes, and knife, the fracture was fully debrided of any fibrous tissue and callus formation. I used a freer elevator to help mobilize the fragments. The overall reduction was easy to manipulate in position. There is a split into the radial styloid and a smaller splint in the ulnar aspect of the distal radius. These were able to be held together with direct traction. Fluoroscopic images were used to confirm adequate reduction. I placed a large K wire through the radial styloid into the shaft of the radius to hold the reduction in place. An appropriately sized Synthes volar locking plate was then placed onto the bony surface of the distal radius. Was then held there with a distal radius clamp sandwiching the plate to the distal segment. A single K wire was placed through the distal end. Fluoroscopy was once again used to confirm appropriate positioning of the plate on the distal radius. A second K wire was placed into the slotted hole on the shaft to hold the orientation of the plate onto the shaft but not limit compression of the plate to the distal segment of the radius. A single nonlocking screw was placed to the distal portion of the plate securing the plate against the bone of the distal radial metaphysis just over the joint surface. Once again, the plate was evaluated to make sure it was aligned appropriately. The single screw was also checked to make sure it was in appropriate positioning for trajectory of future screws. A second nonlocking screw was placed to further reduce the plate onto the distal segment of the radius. The remainder of the screws within the volar locking plate were filled with locking screws. These were made sure not to penetrate the dorsal cortex. Once these were applied the proximal portion of the plate was further reduced down onto the shaft, which further reduce the distal segment. Fluoroscopy was then used against confirm appropriate reduction. Nonlocking screws were placed within the 3 shaft screw holes. Final x-rays were obtained which demonstrated adequate reduction and positioning of hardware. The dorsal sunrise view was also obtained to ensure correct sizing of screws. The wound was then thoroughly irrigated. The pronator quadratus was attempted to be reapproximated with a 0 Vicryl. The tourniquet was released and there was no notable vascular injury. The fingers were warm and well-perfused. The deep dermal layer was closed with a 2-0 Vicryl. The skin was closed with a running 4-0 Monocryl. The wound was dressed with Mepilex. A short arm splint was applied. At the end the case all counts are correct. Patient was transferred back to the PACU in stable condition. Date of Procedure: 10/01/24
== END 2024-10-01 17:50 | disposition home or self-care (01) ==
PROVIDERS: PCP Nurse Practitioner Family; Visit Provider Student in an Organized Health Care Education/Training Program
PROC: (CPT 25609; principal; 2024-10-01 13:15)
DX: S52.572A Other intraarticular fracture of lower end of left radius, initial encounter for closed fracture (principal); S52.612A Displaced fracture of left ulna styloid process, initial encounter for closed fracture; G89.18 Other acute postprocedural pain; M25.532 Pain in left wrist; X50.9XXA Other and unspecified overexertion or strenuous movements or postures, initial encounter
CPT/HCPCS: 25609; C1889; 64415; 76000; 81025; 73100; J0171; J0690; J1100; J2250; J2405; J2704; J2795

== ENCOUNTER 2024-10-13 15:52 | Outpatient (CLI) | payer MEDICAID, SELFPAY ==
--- NOTE | 2024-10-13 15:00 | DI.RAD_ITS ---
Exam(s) XR WRIST LT LIMITED EXAM: XR WRIST LT LIMITED CLINICAL HISTORY: 1ST POST OP S/P ORIF. TECHNIQUE: 2D digital imaging was performed. Two images were obtained. PA and lateral views were ob tained. COMPARISON: CR,XR XR HAND LT COMPLETE from 09/28/2024 CR,XR XR WRIST LT COMPLETE from 09/28/2024 CR XR WRIST LT LIMITED from 10/01/2024 FINDINGS: BONES: There are stable post operative changes present. There is a sideplate and screws set fixating the distal radial fracture. The alignment appears stable. No new fracture or dislocation. There iglesias s been no change in alignment of the displaced ulnar styloid process fracture. JOINTS: The joint spaces are well maintained. SOFT TISSUE: Normal. IMPRESSION: Stable postoperative changes. DATA REPOSITORY: RADIATION DOSE DELIVERED:
== END 2024-10-13 15:53 | disposition home or self-care (01) ==
LOC: DIORS 15:53
PROVIDERS: PCP Nurse Practitioner Family; Referring Provider Nurse Practitioner Family; Visit Provider Student in an Organized Health Care Education/Training Program
DX: S52.612D Displaced fracture of left ulna styloid process, subsequent encounter for closed fracture with routine healing; X58.XXXD Exposure to other specified factors, subsequent encounter
CPT/HCPCS: 73100

== ENCOUNTER 2024-11-10 15:42 | Outpatient (CLI) | payer MEDICAID, SELFPAY ==
--- NOTE | 2024-11-10 14:45 | DI.RAD_ITS ---
Exam(s) XR WRIST LT LIMITED EXAM: XR WRIST LT LIMITED INDICATION: F/U L DISTAL RAD FX. COMPARISON: No exams were available for comparison TECHNIQUE: 2D digital imaging was performed. Two views. FINDINGS: Stable fracture and hardware alignment. Some interval healing since prior exam. No new abnormalitie s. DATA REPOSITORY: RADIATION DOSE DELIVERED:
== END 2024-11-10 15:43 | disposition home or self-care (01) ==
LOC: DIORS 15:43
PROVIDERS: PCP Nurse Practitioner Family; Visit Provider Student in an Organized Health Care Education/Training Program
DX: S52.612D Displaced fracture of left ulna styloid process, subsequent encounter for closed fracture with routine healing (principal); S52.572D Other intraarticular fracture of lower end of left radius, subsequent encounter for closed fracture with routine healing
CPT/HCPCS: 73100